=== PATIENT | male | born 1945 | race Caucasian/White ===

== ENCOUNTER 2018-03-31 07:35 | Day surgery (SDC) | payer MEDICARE, OTHER ==
[2018-03-31 08:41] LABS: HEMATOCRIT 43.6 % (37.9-51.0); MEAN CORPUSCULAR HEMOGLOBIN 32.8 pg (27.0-33.4); MEAN CORPUSCULAR HGB CONC 34.4 g/dL (32.0-36.0); MEAN CORPUSCULAR VOLUME 95 fl (80-97); PLATELET COUNT 107 10^3/uL (150-450); RED BLOOD COUNT 4.58 10^6/uL (4.35-5.55); RED CELL DISTRIBUTION WIDTH 13.6 % (11.5-14.0); WHITE BLOOD COUNT 5.8 10^3/uL (4.0-10.5)
[2018-03-31 08:43] LABS: PROTHROMBIN TIME 16.8 SEC (11.4-15.4)
[2018-03-31 08:44] LABS: PARTIAL THROMBOPLASTIN TIME 33.3 SEC (23.5-35.8)
[2018-03-31 09:01] LABS: BLOOD UREA NITROGEN 7 mg/dL (7-20)
--- NOTE | 2018-03-31 11:38 | RADIOLOGY REPORT (SQ) ---
EXAM DESCRIPTION: U/S ABD PARACENTESIS COMPLETED DATE/TIME: 03/31/2018 11:27 am REASON FOR STUDY: ASCITES COMPARISON None. LIMITATIONS: None. PROCEDURE: After obtaining informed consent, the patient was brought to the ultrasound suite. The p rocedure was performed with the patient on a gurney. Ultrasound was used to identify a prominent poc ket of ascites in the left lower quadrant. An appropriate access site was selected. The patient was prepped and draped in usual sterile fashion. The access site was anesthetized with 6 mL 1% lidocai ne. A Javo-S-Kjwgahqs needle was advanced into the fluid. After aspiration of fluid the needle, the catheter was advanced off the needle into the fluid. A total of 6,000 mL of clear yellow fluid was removed. The patient tolerated the procedure well left the department in satisfactory condition. Patient received IV albumin after the procedure. Fluid was sent for testing as per the ordering phys ician IMPRESSION: Ultrasound-guided paracentesis with removal of 6 L of fluid. Fluid sent for testing. N o immediate complications COMMENT: Patient medication list reviewed: Yes- Quality ID# [id number]:Eligible professional attests to doc umenting in the medical record they obtained, updated, or reviewed the patient's current medications. TECHNICAL DOCUMENTATION: JOB ID: [id number] [employer]- All Rights Reserved Reading location - IP/workstation name: [email or web address]
[2018-03-31 12:02] LABS: FLUID SOURCE ASCITES; FLUID TYPE PERITONEAL
[2018-03-31 12:03] LABS: FLUID APPEARANCE SLIGHTLY HAZY; FLUID COLOR YELLOW; FLUID VISCOSITY LIQUID
[2018-03-31] MEDS: ALBUMIN HUMAN 12.5 GM/50 ML RTUINJ IV SCH ×6 (13:00→15:10)
[2018-03-31 16:06] VITALS: BP 123/67
== END 2018-03-31 15:45 | disposition home or self-care (01) ==
LOC: RAD 07:35 → EDSTATUS 09:30 → RAD 15:45
PROVIDERS: ATTEND Internal Medicine Gastroenterology
DX: K70.31 Alcoholic cirrhosis of liver with ascites (principal); I85.00 Esophageal varices without bleeding; J44.9 Chronic obstructive pulmonary disease, unspecified; I10 Essential (primary) hypertension; F17.210 Nicotine dependence, cigarettes, uncomplicated; Z79.51 Long term (current) use of inhaled steroids; Z79.899 Other long term (current) drug therapy
CPT/HCPCS: 36415; 87205; 87070; 84520; 82565; 85027; 85610; 85730; 89050; 87075; 88162; 88112 ×2; 88305 ×2; 49083; P9047

== ENCOUNTER 2019-03-30 09:15 | Day surgery (SDC) | payer MEDICARE, OTHER ==
[2019-03-30 11:51] VITALS: BP 115/75
--- NOTE | 2019-03-30 13:08 | Discharge Summary ---
Discharge Summary (SDC) - Discharge Final Diagnosis: Ascites, liver failure Date of Surgery: 03/30/19 Discharge Date: 03/30/19 Condition: Stable Treatment or Instructions: Discharge home. Diet as tolerated. Activity: Nonstrenuous. Follow-up with me in 1 to 2 weeks at [facility]. Referrals: BILLIE DURAN MD [Primary Care Provider] - Discharge Diet: As Tolerated Respiratory Treatments at Home: Deep Breathing/Coughing, Incentive Spirometer Discharge Activity: Balance Activity w/Rest Home Care Assistance: None Needed Report the Following to Your Physician Immediately: Shortness of Breath, Nausea, Vomiting, Increase in Pain, Fever over 101 Degrees, Unusual Bleeding, Redness
--- NOTE | 2019-03-30 13:11 | Operative Report ---
Nonrecallable Operative Report DATE OF SURGERY: 03/30/19 PREOPERATIVE DIAGNOSIS: Ascites, abdominal pain, liver failure POSTOPERATIVE DIAGNOSIS: Same as above OPERATION: Ultrasound-guided paracentesis. SURGEON: GRACE GARCIA ANESTHESIA: Local TISSUE REMOVED OR ALTERED: 6 L of ascites. Sample sent for cytology. COMPLICATIONS: None apparent ESTIMATED BLOOD LOSS: Minimal PROCEDURE: Drains/implants: None. Procedure in detail: After informed consent was obtained, the patient was brought into the endoscopy suite and sat in the upright position. The area of the right lower quadrant was prepped and draped in a normal sterile fashion. 1% lidocaine was used to infiltrate the skin of the right lower quadrant. On 11 blade scalpel was used to make a small skin puncture. The paracentesis catheter was then percutaneously inserted into the abdominal cavity. This was done under direct ultrasonic guidance. Once the catheter was inserted into the abdomen, the needle was withdrawn and the paracentesis was performed. Approximately 6 L of clear yellow ascites was removed from the abdominal cavity. Once no more ascites could be removed, the catheter was withdrawn under suction. A dressing was placed, and the procedure was concluded. All sponge, instrument, and needle counts were correct. Condition: Stable.
== END 2019-03-30 11:30 | disposition home or self-care (01) ==
LOC: END 09:15
PROVIDERS: ATTEND Surgery
DX: R18.8 Other ascites (principal); K72.90 Hepatic failure, unspecified without coma; R16.0 Hepatomegaly, not elsewhere classified
CPT/HCPCS: 49082

== ENCOUNTER 2019-05-13 07:36 | Day surgery (SDC) | payer MEDICARE, OTHER ==
[2019-05-13 09:28] VITALS: BP 100/54
--- NOTE | 2019-05-13 10:43 | Discharge Summary ---
Discharge Summary (SDC) - Discharge Final Diagnosis: Liver failure. Ascites. Hepatocellular carcinoma. Date of Surgery: 05/13/19 Discharge Date: 05/13/19 Condition: Fair Forms: EU Anesthesia D/C Instructions, Discharge POC-Surgical Service Referrals: GRACE GARCIA MD [ACTIVE STAFF] - Discharge Diet: As Tolerated Respiratory Treatments at Home: Deep Breathing/Coughing, Incentive Spirometer Discharge Activity: Balance Activity w/Rest Home Care Assistance: None Needed Report the Following to Your Physician Immediately: Shortness of Breath, Nausea, Vomiting, Increase in Pain, Fever over 101 Degrees, Unusual Bleeding, Redness, Warmth, IV Site Infection Signs
--- NOTE | 2019-05-13 10:45 | Operative Report ---
Nonrecallable Operative Report DATE OF SURGERY: 05/13/19 PREOPERATIVE DIAGNOSIS: Ascites, liver failure, hepatocellular carcinoma. POSTOPERATIVE DIAGNOSIS: Same as above OPERATION: Ultrasound-guided paracentesis SURGEON: GRACE GARCIA ANESTHESIA: Local TISSUE REMOVED OR ALTERED: 6 L of ascites. COMPLICATIONS: None apparent ESTIMATED BLOOD LOSS: Minimal PROCEDURE: Procedure in detail: After informed consent was obtained, the patient was brought into the endoscopy suite and sat in the upright position. The ultra sound was used to identify an appropriate area on the abdomen for paracentesis. The left lower quadrant was chosen. The left lower quadrant was then prepped and draped in a normal sterile fashion. The paracentesis catheter was inserted under direct ultrasonic guidance into an area filled with fluid. The catheter was then attached to suction. 6 L of ascites was removed. The patient tolerated the procedure well. His blood pressure and heart rate remained stable throughout. Once no more fluid could be removed from the catheter, the patient was laid flat, and the catheter was removed under suction. A dressing was placed, and the procedure was concluded. All sponge, instrument, and needle counts were correct. Condition: Fair.
== END 2019-05-13 09:40 | disposition home or self-care (01) ==
LOC: END 07:36
PROVIDERS: ATTEND Surgery
DX: R18.8 Other ascites (principal); K72.90 Hepatic failure, unspecified without coma; C22.0 Liver cell carcinoma; J44.9 Chronic obstructive pulmonary disease, unspecified; F17.210 Nicotine dependence, cigarettes, uncomplicated; Z79.82 Long term (current) use of aspirin; Z01.818 Encounter for other preprocedural examination
CPT/HCPCS: 49082

== ENCOUNTER 2019-06-19 13:28 | Inpatient (IN) | payer MEDICARE, OTHER ==
[2019-06-19 13:54] LABS: VENOUS BLOOD BASE EXCESS -4.8 mmol/L; VENOUS BLOOD HCO3 19.9 mmol/L (20-32); VENOUS BLOOD PCO2 35.3 mmHg (35-63); VENOUS BLOOD PH 7.37 (7.30-7.42)
[2019-06-19 13:56] LABS: ABSOLUTE LYMPHOCYTES (AUTO) 0.5 10^3/uL (0.5-4.7); ABSOLUTE MONOCYTES (AUTO) 0.6 10^3/uL (0.1-1.4); ABSOLUTE NEUT (AUTO) 7.8 10^3/uL (1.7-8.2); BASOPHILS % (AUTO) 0.4 % (0-2); HEMATOCRIT 26.8 % (37.9-51.0); HEMOGLOBIN 8.9 g/dL (13.5-17.0); LYMPHOCYTES % (AUTO) 5.2 % (13-45); MEAN CORPUSCULAR HEMOGLOBIN 31.5 pg (27.0-33.4); MEAN CORPUSCULAR VOLUME 96 fl (80-97); MONOCYTES % (AUTO) 6.3 % (3-13); RED BLOOD COUNT 2.81 10^6/uL (4.35-5.55); RED CELL DISTRIBUTION WIDTH 16.2 % (11.5-14.0); SEGMENTED NEUTROPHILS % (AUTO) 88.1 % (42-78); TOTAL CELLS COUNTED % (AUTO) 100 %; WHITE BLOOD COUNT 8.8 10^3/uL (4.0-10.5)
[2019-06-19 14:11] LABS: ALBUMIN 2.3 g/dL (3.5-5.0); ALKALINE PHOSPHATASE 67 U/L (38-126); ANION GAP 9 (5-19); ASPARTATE AMINO TRANSFERASE 59 U/L (17-59); BILIRUBIN,DIRECT 0.8 mg/dL (0.0-0.4); BILIRUBIN,TOTAL 1.7 mg/dL (0.2-1.3); BLOOD UREA NITROGEN 86 mg/dL (7-20); CARBON DIOXIDE 20 mmol/L (22-30); CHLORIDE 106 mmol/L (98-107); GLUCOSE 93 mg/dL (75-110); POTASSIUM 4.6 mmol/L (3.6-5.0); TOTAL PROTEIN 5.2 g/dL (6.3-8.2)
[2019-06-19 14:14] LABS: PLATELET COUNT 88 10^3/uL (150-450)
--- NOTE | 2019-06-19 14:22 | RADIOLOGY REPORT (SQ) ---
EXAM DESCRIPTION: CHEST SINGLE VIEW COMPLETED DATE/TIME: 06/19/2019 2:02 pm REASON FOR STUDY: sepsis alert COMPARISON: 06/08/2018 EXAM PARAMETERS: NUMBER OF VIEWS: One view. TECHNIQUE: Single frontal radiographic view of the chest acquired. RADIATION DOSE: NA LIMITATIONS: None. FINDINGS: LUNGS AND PLEURA: No opacities, masses or pneumothorax. No pleural effusion. MEDIASTINUM AND HILAR STRUCTURES: No masses. Contour normal. HEART AND VASCULAR STRUCTURES: Heart normal in size. Normal vasculature. BONES: No acute findings. HARDWARE: None in the chest. OTHER: No other significant finding. IMPRESSION: NO ACUTE RADIOGRAPHIC FINDING IN THE CHEST. TECHNICAL DOCUMENTATION: JOB ID: [id number] [employer]- All Rights Reserved Reading location - IP/workstation name: [email or web address]
[2019-06-19 14:29] LABS: INTERNATIONAL RATION (INR) 1.75; PROTHROMBIN TIME 20.7 SEC (11.4-15.4)
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
[2019-06-19] MEDS ORDERED: CEFTRIAXONE 1 GM/D5W RTU 1 GM/50 ML RTUPB IV ONE ×3 (14:40→15:28)
[2019-06-19 15:21] LABS: APPEARANCE,URINE SLIGHTLY-CLOUDY; BILIRUBIN,URINE NEGATIVE (NEGATIVE); COLOR,URINE AMBER; GLUCOSE, URINE NEGATIVE (NEGATIVE); KETONES,URINE NEGATIVE (NEGATIVE); PROTEIN,URINE 30 mg/dL (NEGATIVE); UROBILINOGEN,URINE NEGATIVE mg/dL (<2.0)
[2019-06-19] MEDS ORDERED: CEFTRIAXONE 2 GM/D5W RTU 2 GM/50 ML RTUPB IV ONE (15:26)
--- NOTE | 2019-06-19 16:11 | RADIOLOGY REPORT (SQ) ---
EXAM DESCRIPTION: CT HEAD WITHOUT COMPLETED DATE/TIME: 06/19/2019 3:51 pm REASON FOR STUDY: altered mental status COMPARISON: None. TECHNIQUE: Axial images acquired through the brain without intravenous contrast. Images reviewed wi th bone, brain and subdural windows. Images stored on PACS. All CT scanners at this facility use dose modulation, iterative reconstruction, and/or weight based d osing when appropriate to reduce radiation dose to as low as reasonably achievable (ALARA). [facility]: Dose Right [facility]: CareDose [facility]: Dose Right [facility]: Teradose 4D [facility]: Red Aril RADIATION DOSE: CT Rad equipment meets quality standard of care and radiation dose reduction techniq ues were employed. CTDIvol: 53.2 mGy. DLP: 1097 mGy-cm. mGy. LIMITATIONS: None. FINDINGS: VENTRICLES: Normal size and contour. CEREBRUM: No masses. No hemorrhage. No midline shift. No evidence for acute infarction. Normal gra y/white matter differentiation. No areas of low density in the white matter. CEREBELLUM: No masses. No hemorrhage. No alteration of density. No evidence for acute infarction. EXTRAAXIAL SPACES: No fluid collections. No masses. ORBITS AND GLOBE: No intra- or extraconal masses. Normal contour of globe without masses. CALVARIUM: No fracture. PARANASAL SINUSES: Minimal mucosal thickening within the sphenoid sinuses and right ethmoid sinus. N roselia septal deviation to the right. SOFT TISSUES: No mass or hematoma. OTHER: No other significant finding. IMPRESSION: NORMAL BRAIN CT WITHOUT CONTRAST. EVIDENCE OF ACUTE STROKE: NO. COMMENT: Quality ID # [id number]: Final reports with documentation of one or more dose reduction techniques (e.g., Automated exposure control, adjustment of the mA and/or kV according to patient size, use of iterative reconstruction technique) TECHNICAL DOCUMENTATION: JOB ID: [id number] SC-[id number] 2010 [employer]- All Rights Reserved Reading location - IP/workstation name: [email or web address]
[2019-06-19] MEDS ORDERED: NORMAL SALINE 1000 ML 1,000 ML IV ONE ×2 (16:19→17:16)
[2019-06-19] MEDS ORDERED: NORMAL SALINE 500 ML IV ONE (16:19)
--- NOTE | 2019-06-19 16:28 | RADIOLOGY REPORT (SQ) ---
EXAM DESCRIPTION: CT ABD/PELVIS NO ORAL OR IV COMPLETED DATE/TIME: 06/19/2019 3:51 pm REASON FOR STUDY: abdominal pain/ ascites/ YADIRA COMPARISON: None. TECHNIQUE: CT scan of the abdomen and pelvis performed without intravenous or oral contrast. Images reviewed with lung, soft tissue, and bone windows. Reconstructed coronal and sagittal MPR images revi ewed. All images stored on PACS. All CT scanners at this facility use dose modulation, iterative reconstruction, and/or weight based d osing when appropriate to reduce radiation dose to as low as reasonably achievable (ALARA). [facility]: Dose Right [facility]: CareDose [facility]: Dose Right [facility]: Teradose 4D [facility]: Smart MoSync RADIATION DOSE: CT Rad equipment meets quality standard of care and radiation dose reduction techniq ues were employed. CTDIvol: 14.4 mGy. DLP: 846 mGy-cm.mGy. LIMITATIONS: None. FINDINGS: LOWER CHEST: Chronic subpleural interstitial changes. Calcified granuloma right lower lob e. NON-CONTRASTED LIVER, SPLEEN, ADRENALS: LIVER: Small and nodular consistent with cirrhosis. SPLEEN: No abnormality. ADRENALS: No abnormality. PANCREAS: No abnormality. GALLBLADDER: Hyperdense. RIGHT KIDNEY AND URETER: No abnormality. LEFT KIDNEY AND URETER: Nonobstructive calculus mid left kidney. AORTA AND RETROPERITONEUM: Diffuse atherosclerotic change of the abdominal aorta and iliac vessels. Atherosclerotic change at origin of celiac artery and superior mesenteric artery. Atherosclerotic ch leanne at origin of renal arteries. 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 The aneurysm measures 5.4(T)x5(AP) x. 5.7(H) cm. No retroperitoneal masses or adenopathy. BOWEL AND PERITONEAL CAVITY: Thickening of the stomach wall noted. Inflammatory change not excluded. Hiatal hernia not excluded. Diverticulosis of the rectosigmoid colon. APPENDIX: Normal. PELVIS, BLADDER, AND ABDOMINAL WALL:Urinary bladder: Singletary catheter in bladder base. Bladder decomp ressed. BONES: Thoracic and lumbar spondylosis. OTHER: No other significant finding. IMPRESSION: 1. Findings consistent with cirrhosis of the liver with evidence of small nodular liver . Massive ascites. 2. Hyperdense gallbladder. The possibility of cholelithiasis cannot be exclude d. Hyperdensity could be secondary to excretion of contrast if prior contrast administration perform ed. 3. 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 The aneurysm measures 5.4 x 5 x 5.7 cm. 4. Thickening of the gastric mucosa which could be seen with inflammatory change. Clinical correlation needed. Hiatal hernia. 5. Chr onic interstitial changes in right lower lobe. Old granulomatous disease. COMMENT: Quality ID # [id number]: Final reports with documentation of one or more dose reduction techniques (e.g., Automated exposure control, adjustment of the mA and/or kV according to patient size, use of iterative reconstruction technique) TECHNICAL DOCUMENTATION: JOB ID: [id number] SC-[id number] 2010 [employer]- All Rights Reserved Reading location - IP/workstation name: [email or web address]
[2019-06-19] MEDS ORDERED: ONDANSETRON 4 MG TAB.RAPDIS PO PRN (17:25)
[2019-06-19] MEDS ORDERED: ALBUTEROL SULFATE 0.083% NEB 2.5 MG/3 ML AMPUL NEB PRN (17:25)
[2019-06-19] MEDS ORDERED: NORMAL SALINE 250 ML IV PRN (17:51)
[2019-06-19] MEDS ORDERED: SUCRALFATE 1 GM TABLET PO SCH (18:00)
--- NOTE | 2019-06-19 18:24 | CRITICAL CARE ADMISSION REPORT ---
HPI Date:: 06/19/19 Time:: 17:00 Reason for ICU Reason:: ARF, cirrhosis, GI bleeding, encephalopathy. HPI: This patient is a 74 yo man who (according to the who spoke to the ED MD). He was recently at [facility] for some hepatology issue. He is a cirrhotic and underwent a paracentesis. He was sent home and the found herself in the hospital for a few days. During that time the patient decompensated more with encephalopathy (NH3 9) not eating or drinking nor taking care of himself. He is brought to the ED for confusion and dehydration. While in the ED he had maroon BMs and Dropped his pressure to the 70s. Now up to mid 80s where he has been. He is also in ARF with a Cr 3 ut mild acidosis, no hyperkalemia certainly not overloaded. History obtained from:: ED MD who also spoke to . Patient confused - Diagnosis/Plan (1) Cirrhosis of liver Qualifiers: Hepatic cirrhosis type: alcoholic cirrhosis Ascites presence: with ascites Qualified Code(s): K70.31 - Alcoholic cirrhosis of liver with ascites Is this a current diagnosis for this admission?: Yes Plan: His LFTs are normal but on CT his liver is small and shrunken. No sign of hepatoma but it is without contrast. He will need IVF, albumin and blood which makes it necessary to monitor in the ICU given his liver status, ascites and need for blood products. Be careful of worsening ascites. (2) GI bleeding Qualifiers: GI bleed type/associated pathology: unspecified gastrointestinal hemorrhage type Qualified Code(s): K92.2 - Gastrointestinal hemorrhage, unspecified Is this a current diagnosis for this admission?: Yes Plan: He is bleeding maroon BM but given his hx of cirrhosis and ETOH an upper source is most likely. We will transfuse 1 unit to start and begin a protonix drip with carafate. (3) Acute kidney injury Is this a current diagnosis for this admission?: Yes Plan: CR 3.0 but with no acidosis or hypekalemia continue IVF. Recheck labs in AM. Suspect a worsening by AM (4) Dehydration Is this a current diagnosis for this admission?: Yes Plan: Continue IVF. Likely the reason for lactic acid of nearly 3. Also he is probaly deficient in lactate dehydrogenase as well. (5) Encephalopathy acute Is this a current diagnosis for this admission?: Yes Plan: Multifactorial. Ammonia only 9 so this is likely due to dehydration and medical illness. Right now does not seem hepatic. Past Medical History Cardiac Medical History: Reports: Hypertension Denies: Coronary Artery Disease, Myocardial Infarction Pulmonary Medical History: Reports: Chronic Obstructive Pulmonary Disease (COPD) Denies: Asthma, Bronchitis, Pneumonia Neurological Medical History: Denies: Seizures Musculoskeltal Medical History: Denies: Arthritis Hematology: Denies: Anemia Social/Family History - Social History Smoking Status: Unknown if Ever Smoked Frequency of Alcohol Use: Heavy - Family History Family History: Other - Not known - Medication/Allergies Home Medications: Albuterol Sulfate [Proair HFA] 1 - 2 puff IH Q4 PRN 03/31/18 Amlodipine Besylate 10 mg PO DAILY 03/31/18 Aspirin [Aspirin 325 mg Tablet] 325 mg PO DAILY 03/31/18 Furosemide 20 mg PO DAILY 03/31/18 Hydralazine HCl 100 mg PO DAILY 03/31/18 Lactulose 10 gm PO DAILY 03/31/18 Metoprolol Succinate 100 mg PO DAILY 03/31/18 Montelukast Sodium [Singulair] 10 mg PO DAILY 03/31/18 Potassium Chloride 2 tab PO DAILY 03/31/18 Spironolactone 50 mg PO DAILY 03/31/18 Allergies/Adverse Reactions: No Known Allergies Allergy (Verified 03/31/18 08:06) Review of Systems ROS unobtainable: Due to mental status Constitutional: PRESENT: fatigue, weakness Eyes: ABSENT: visual disturbances Ears: ABSENT: hearing changes Cardiovascular: ABSENT: chest pain, dyspnea on exertion, edema, orthropnea, palpitations Respiratory: ABSENT: cough, hemoptysis Gastrointestinal: PRESENT: abdominal pain Musculoskeletal: ABSENT: joint swelling Neurological: PRESENT: confusion, weakness Psychiatric: ABSENT: anxiety, depression, homidical ideation, suicidal ideation Hematologic/Lymphatic: ABSENT: easy bleeding, easy bruising Physical Exam Vital Signs: Temp Pulse Resp BP Pulse Ox 96.4 F L 13 85/62 L 100 06/19/19 17:45 06/19/19 17:45 06/19/19 17:45 06/19/19 17:45 Intake & Output 06/18/19 06/19/19 06/20/19 06:59 06:59 06:59 Intake Total 1600 Output Total 50 Balance 1550 Weight 58.967 kg Weight/Height Weight 58.967 kg General appearance: PRESENT: no acute distress, disheveled, thin Exam: Emaciated Head exam: PRESENT: atraumatic, normocephalic Eye exam: PRESENT: conjunctiva pink, EOMI, PERRLA. ABSENT: scleral icterus Ear exam: PRESENT: normal external ear exam Mouth exam: PRESENT: dry mucosa, tongue midline Neck exam: ABSENT: carotid bruit, JVD, lymphadenopathy, thyromegaly Respiratory exam: PRESENT: clear to auscultation zak, decreased breath sounds, unlabored Cardiovascular exam: PRESENT: tachycardia Pulses: PRESENT: normal dorsalis pedis pul Vascular exam: PRESENT: normal capillary refill GI/Abdominal exam: PRESENT: ascites, diminished bowel sounds, distended, soft Rectal exam: PRESENT: deferred, bloody stool Gentrourinary exam: PRESENT: indwelling catheter Extremities exam: PRESENT: other - Multiple phil of petechia and bruising on all 4 extremities. Neurological exam: PRESENT: alert, altered, awake, oriented to person Skin exam: PRESENT: petechiae Laboratory/Radiographs Laboratory Results: 06/19/19 13:37 06/19/19 13:37 06/19/19 06/19/19 06/19/19 13:37 13:37 13:37 WBC 8.8 RBC 2.81 L Hgb 8.9 L Hct 26.8 L MCV 96 MCH 31.5 MCHC 33.0 RDW 16.2 H Plt Count 88 L Seg Neutrophils % 88.1 H VBG pH VBG pCO2 VBG HCO3 VBG Base Excess Sodium 135.2 L Potassium 4.6 Chloride 106 Carbon Dioxide 20 L Anion Gap 9 BUN 86 H Creatinine 3.07 H Est GFR ( Amer) 24 L Glucose 93 Lactic Acid 2.9 H Calcium 9.0 Total Bilirubin 1.7 H AST 59 Alkaline Phosphatase 67 Ammonia Total Protein 5.2 L Albumin 2.3 L Urine Color Urine Appearance Urine pH Ur Specific [place] Urine Protein Urine Glucose (UA) Urine Ketones Urine Blood Urine RBC (Auto) 06/19/19 06/19/19 06/19/19 13:37 13:37 14:56 WBC RBC Hgb Hct MCV MCH MCHC RDW Plt Count Seg Neutrophils % VBG pH 7.37 VBG pCO2 35.3 VBG HCO3 19.9 L VBG Base Excess -4.8 Sodium Potassium Chloride Carbon Dioxide Anion Gap BUN Creatinine Est GFR ( Amer) Glucose Lactic Acid Calcium Total Bilirubin AST Alkaline Phosphatase Ammonia 9.4 Total Protein Albumin Urine Color DEJUAN Urine Appearance SLIGHTLY-CLOUDY Urine pH 5.0 Ur Specific [place] 1.020 Urine Protein 30 H Urine Glucose (UA) NEGATIVE Urine Ketones NEGATIVE Urine Blood SMALL H Urine RBC (Auto) 15 06/19/19 06/19/19 17:05 17:05 WBC RBC Hgb Hct MCV MCH MCHC RDW Plt Count Seg Neutrophils % VBG pH VBG pCO2 VBG HCO3 VBG Base Excess Sodium Potassium Chloride Carbon Dioxide Anion Gap BUN Creatinine Est GFR ( Amer) Glucose Lactic Acid Cancelled 2.0 Calcium Total Bilirubin AST Alkaline Phosphatase Ammonia Total Protein Albumin Urine Color Urine Appearance Urine pH Ur Specific [place] Urine Protein Urine Glucose (UA) Urine Ketones Urine Blood Urine RBC (Auto) 06/19/19 06/19/19 13:37 13:37 Troponin I 0.086 NT-Pro-B Natriuret Pep 6470 H Impressions: Chest X-Ray 06/19/19 13:36 IMPRESSION: NO ACUTE RADIOGRAPHIC FINDING IN THE CHEST. Head CT 06/19/19 15:12 IMPRESSION: NORMAL BRAIN CT WITHOUT CONTRAST. EVIDENCE OF ACUTE STROKE: NO. Abdomen/Pelvis CT 06/19/19 15:25 IMPRESSION: 1. Findings consistent with cirrhosis of the liver with evidence of small nodular liver. Massive ascites. 2. Hyperdense gallbladder. The possibility of cholelithiasis cannot be excluded. Hyperdensity could be secondary to excretion of contrast if prior contrast administration performed. 3. 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 The aneurysm measures 5.4 x 5 x 5.7 cm. 4. Thickening of the gastric mucosa which could be seen with inflammatory c hange. Clinical correlation needed. Hiatal hernia. 5. Chronic interstitial changes in right lower lobe. Old granulomatous disease. All labs, radiographs, diagnostic studies and EKGs were personally reviewed: Yes In addition, reports of radiographic and diagnostic studies were read: Yes Critical Time Critical Time (minutes): 45 -: The care of a critically ill patient is dynamic. This note represents a static moment in the admission process. orders and treatments may be given simulataneously and urgentl, and time is not kiosk sales representative of the treatment process. This patient requires Critical Care secondary to life threating organ or limb dysfunction. Without the need for Critical Care services, the patient is at risk for increasid mortality and morbidity.
[2019-06-19] MEDS: ALBUMIN HUMAN 12.5 GM/50 ML RTUINJ IV SCH ×2 (18:31→21:40)
[2019-06-19] MEDS ORDERED: THIAMINE HCL 100 MG in NORMAL SALINE 50 ML IV ONE (19:15)
[2019-06-19] MEDS ORDERED: PANTOPRAZOLE SODIUM 40 MG VIAL IV ONE (19:31)
[2019-06-19] MEDS ORDERED: PHARMACY COMMUNICATION ORDER MC NR (20:00)
[2019-06-19] MEDS ORDERED: DIPHENHYDRAMINE HCL 50 MG/ML VIAL ONE (20:19)
[2019-06-19] MEDS ORDERED: ONDANSETRON HCL INJ/PF 4 MG/2 ML SDV ONE (20:19)
[2019-06-19] MEDS ORDERED: NALOXONE HCL INJ/PF 0.4 MG/1 ML SDV ONE (20:20)
[2019-06-19] MEDS ORDERED: FENTANYL CITRATE INJ/PF 100 MCG/2 ML AMPUL ONE (20:20)
[2019-06-19] MEDS ORDERED: GLUCAGON,HUMAN RECOMB 1 MG INJ ONE (20:20)
[2019-06-19] MEDS ORDERED: EPINEPHRINE INJ 1 MG/10 ML DISP.SYRIN ONE (20:20)
[2019-06-19] MEDS ORDERED: FLUMAZENIL INJ 0.5 MG/5 ML VIAL ONE (20:20)
--- NOTE | 2019-06-19 20:37 | RADIOLOGY REPORT (SQ) ---
EXAM DESCRIPTION: XR CHEST 1 VIEW COMPLETED DATE/TME: 06/19/2019 00:00 CLINICAL HISTORY: 74 years, Male, confirm line placement COMPARISON: Prior study from earlier the same day NUMBER OF VIEWS: One TECHNIQUE: Single frontal view of the chest was obtained portably LIMITATIONS: None. FINDINGS: Enteric drainage tube tip projects below the field of view, at least within the stomach. Left IJ approach central venous catheter tip is located at the confluence of the left brachiocephalic vein with the SVC. Cardiac and mediastinal contours are stable. Lungs are clear. No pleural effusion or pneumothorax. IMPRESSION: Interval placement of left IJ approach central venous catheter with its tip located at the confluence of the left brachiocephalic vein with the SVC. Enteric drainage tube tip is below the field of view. It is at least within the stomach. copyright 2010 [employer]- All Rights Reserved
[2019-06-19] MEDS ORDERED: OCTREOTIDE ACETATE INJ/PF 100 MCG/1 ML SDV ONE (20:43)
[2019-06-19] MEDS ORDERED: THIAMINE HCL INJ 200 MG/2 ML VIAL ONE (20:44)
[2019-06-19] MEDS: MIDAZOLAM 2 MG/2 ML INJ ONE (20:58)
[2019-06-19] MEDS ORDERED: PEG 3350/NA SULF,BICARB,CL/KCL 4000 ML PO ONE (21:07)
[2019-06-19] MEDS ORDERED: PEG 3350/NA SULF,BICARB,CL/KCL 4000 ML ONE (21:12)
--- NOTE | 2019-06-19 21:29 | PDOC CONSULTATION ---
Consultation Consult Date: 06/19/19 Attending physician:: PROSPER LÓPEZ Provider Consulted: JEFF MENDEZ Consult reason:: gi bleeding History of Present Illness Admission Date/PCP: 06/19/19 17:30 BILLIE DURAN MD History of Present Illness: ADDISON BERMUDEZ JR is a 74 year old male This patient is a 74 yo man who (according to the who spoke to the ED MD). He was recently at [facility] for some hepatology issue. He is a cirrhotic and underwent a paracentesis. He was sent home and the found herself in the hospital for a few days. During that time the patient decompensated more with encephalopathy (NH3 9) not eating or drinking nor taking care of himself. He is brought to the ED for confusion and dehydration. While in the ED he had maroon BMs and Dropped his pressure to the 70s. Now up to mid 80s where he has been. He is also in ARF with a Cr 3 ut mild acidosis, no hyperkalemia certainly not overloaded. History obtained from:: ED MD who also spoke to . 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 history of ascites severe EtOH abuse Musculoskeltal Medical History: Denies: Arthritis Hematology: Reports: Bleeding Tendencies Denies: Anemia Past Surgical History Past Surgical History: Reports: Vascular Surgery, Other - With history of a variceal banding Social History Smoking Status: Unknown if Ever Smoked Cigarettes Packs Per Day: 1 Frequency of Alcohol Use: Heavy Hx Recreational Drug Use: No Drugs: None - Advance Directive Resuscitation Status: Full Code Family History Family History: Reviewed & Not Pertinent, Other - Not known Parental Family History Reviewed: No Children Family History Reviewed: NA Sibling(s) Family History Reviewed.: NA Medication/Allergy Home Medications: Albuterol Sulfate [Proair HFA] 1 - 2 puff IH Q4 PRN 03/31/18 Amlodipine Besylate 10 mg PO DAILY 03/31/18 Aspirin [Aspirin 325 mg Tablet] 325 mg PO DAILY 03/31/18 Furosemide 20 mg PO DAILY 03/31/18 Hydralazine HCl 100 mg PO DAILY 03/31/18 Lactulose 10 gm PO DAILY 03/31/18 Metoprolol Succinate 100 mg PO DAILY 03/31/18 Montelukast Sodium [Singulair] 10 mg PO DAILY 03/31/18 Potassium Chloride 2 tab PO DAILY 03/31/18 Spironolactone 50 mg PO DAILY 03/31/18 Allergies/Adverse Reactions: No Known Allergies Allergy (Verified 03/31/18 08:06) Review of Systems ROS unobtainable: Due to mental status Constitutional: ABSENT: chills, fever(s), headache(s), weight gain, weight loss Eyes: ABSENT: visual disturbances Ears: ABSENT: hearing changes Cardiovascular: ABSENT: chest pain, dyspnea on exertion, edema, orthropnea, palpitations Respiratory: ABSENT: cough, hemoptysis Gastrointestinal: PRESENT: melena. ABSENT: abdominal pain, constipation, diarrhea, hematemesis, hematochezia, nausea, vomiting Genitourinary: ABSENT: dysuria, hematuria Musculoskeletal: ABSENT: joint swelling Integumentary: ABSENT: rash, wounds Neurological: ABSENT: abnormal gait, abnormal speech, confusion, dizziness, focal weakness, syncope Psychiatric: ABSENT: anxiety, depression, homidical ideation, suicidal ideation Endocrine: ABSENT: cold intolerance, heat intolerance, polydipsia, polyuria Hematologic/Lymphatic: ABSENT: easy bleeding, easy bruising Physical Exam Vital Signs: Temp Pulse Resp BP Pulse Ox 96.6 F L 97 20 91/54 L 99 06/19/19 20:15 06/19/19 20:30 06/19/19 20:30 06/19/19 20:30 06/19/19 20:30 Intake & Output 06/18/19 06/19/19 06/20/19 06:59 06:59 06:59 Intake Total 1859 Output Total 250 Balance 1609 Weight 61.1 kg General appearance: PRESENT: no acute distress, disheveled, severe distress, thin, well-developed, well-nourished Head exam: PRESENT: atraumatic, normocephalic Eye exam: PRESENT: conjunctiva pink, EOMI, PERRLA. ABSENT: scleral icterus Ear exam: PRESENT: normal external ear exam Mouth exam: PRESENT: dry mucosa, moist, tongue midline Teeth exam: PRESENT: edentulous Neck exam: PRESENT: full ROM. ABSENT: carotid bruit, JVD, lymphadenopathy, thyromegaly Respiratory exam: PRESENT: clear to auscultation zak, decreased breath sounds. ABSENT: rales, rhonchi, wheezes Cardiovascular exam: PRESENT: RRR. ABSENT: diastolic murmur, rubs, systolic murmur Pulses: PRESENT: normal carotid pulses, normal dorsalis pedis pul Vascular exam: PRESENT: normal capillary refill GI/Abdominal exam: PRESENT: ascites, diminished bowel sounds, normal bowel sounds, soft, other - Hematochezia amounts of dark tarry stool. ABSENT: distended, guarding, mass, organolmegaly, rebound, tenderness Rectal exam: PRESENT: deferred Gentrourinary exam: PRESENT: indwelling catheter Extremities exam: PRESENT: full ROM. ABSENT: calf tenderness, clubbing, pedal edema Neurological exam: PRESENT: alert, altered - Encephalopathic, awake, oriented to person, oriented to place, oriented to time, oriented to situation, CN II-XII grossly intact. ABSENT: motor sensory deficit Psychiatric exam: PRESENT: appropriate affect, normal mood. ABSENT: homicidal ideation, suicidal ideation Skin exam: PRESENT: dry, intact, warm, other - Multiple ecchymoses on the abdominal wall all 4 extremities on his face. ABSENT: cyanosis, rash Results Laboratory Results: 06/19/19 13:37 06/19/19 13:37 06/19/19 06/19/19 06/19/19 13:37 13:37 13:37 WBC 8.8 RBC 2.81 L Hgb 8.9 L Hct 26.8 L MCV 96 MCH 31.5 MCHC 33.0 RDW 16.2 H Plt Count 88 L Seg Neutrophils % 88.1 H VBG pH VBG pCO2 VBG HCO3 VBG Base Excess Sodium 135.2 L Potassium 4.6 Chloride 106 Carbon Dioxide 20 L Anion Gap 9 BUN 86 H Creatinine 3.07 H Est GFR ( Amer) 24 L Glucose 93 Lactic Acid 2.9 H Calcium 9.0 Magnesium Total Bilirubin 1.7 H AST 59 Alkaline Phosphatase 67 Ammonia Total Protein 5.2 L Albumin 2.3 L Urine Color Urine Appearance Urine pH Ur Specific [place] Urine Protein Urine Glucose (UA) Urine Ketones Urine Blood Urine RBC (Auto) Blood Type Antibody Screen 06/19/19 06/19/19 06/19/19 13:37 13:37 14:56 WBC RBC Hgb Hct MCV MCH MCHC RDW Plt Count Seg Neutrophils % VBG pH 7.37 VBG pCO2 35.3 VBG HCO3 19.9 L VBG Base Excess -4.8 Sodium Potassium Chloride Carbon Dioxide Anion Gap BUN Creatinine Est GFR ( Amer) Glucose Lactic Acid Calcium Magnesium Total Bilirubin AST Alkaline Phosphatase Ammonia 9.4 Total Protein Albumin Urine Color DEJUAN Urine Appearance SLIGHTLY-CLOUDY Urine pH 5.0 Ur Specific [place] 1.020 Urine Protein 30 H Urine Glucose (UA) NEGATIVE Urine Ketones NEGATIVE Urine Blood SMALL H Urine RBC (Auto) 15 Blood Type Antibody Screen 06/19/19 06/19/19 06/19/19 17:05 17:05 18:35 WBC RBC Hgb Hct MCV MCH MCHC RDW Plt Count Seg Neutrophils % VBG pH VBG pCO2 VBG HCO3 VBG Base Excess Sodium Potassium Chloride Carbon Dioxide Anion Gap BUN Creatinine Est GFR ( Amer) Glucose Lactic Acid Cancelled 2.0 Calcium Magnesium Total Bilirubin AST Alkaline Phosphatase Ammonia Total Protein Albumin Urine Color Urine Appearance Urine pH Ur Specific [place] Urine Protein Urine Glucose (UA) Urine Ketones Urine Blood Urine RBC (Auto) Blood Type O POSITIVE Antibody Screen NEGATIVE 06/19/19 18:35 WBC RBC Hgb Hct MCV MCH MCHC RDW Plt Count Seg Neutrophils % VBG pH VBG pCO2 VBG HCO3 VBG Base Excess Sodium Potassium Chloride Carbon Dioxide Anion Gap BUN Creatinine Est GFR ( Amer) Glucose Lactic Acid Calcium Magnesium 1.9 Total Bilirubin AST Alkaline Phosphatase Ammonia Total Protein Albumin Urine Color Urine Appearance Urine pH Ur Specific [place] Urine Protein Urine Glucose (UA) Urine Ketones Urine Blood Urine RBC (Auto) Blood Type Antibody Screen 06/19/19 06/19/19 13:37 13:37 Troponin I 0.086 NT-Pro-B Natriuret Pep 6470 H Impressions: Chest X-Ray 06/19/19 13:36 IMPRESSION: NO ACUTE RADIOGRAPHIC FINDING IN THE CHEST. Head CT 06/19/19 15:12 IMPRESSION: NORMAL BRAIN CT WITHOUT CONTRAST. EVIDENCE OF ACUTE STROKE: NO. Abdomen/Pelvis CT 06/19/19 15:25 IMPRESSION: 1. Findings consistent with cirrhosis of the liver with evidence of small nodular liver. Massive ascites. 2. Hyperdense gallbladder. The possibility of cholelithiasis cannot be excluded. Hyperdensity could be secondary to excretion of contrast if prior contrast administration performed. 3. 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 The aneurysm measures 5.4 x 5 x 5.7 cm. 4. Thickening of the gastric mucosa which could be seen with inflammatory monroe nge. Clinical correlation needed. Hiatal hernia. 5. Chronic interstitial changes in right lower lobe. Old granulomatous disease. Assessment & Plan - Diagnosis (1) Cirrhosis of liver Qualifiers: Hepatic cirrhosis type: alcoholic cirrhosis Ascites presence: with ascites Qualified Code(s): K70.31 - Alcoholic cirrhosis of liver with ascites Is this a current diagnosis for this admission?: Yes (2) Encephalopathy acute Is this a current diagnosis for this admission?: Yes (3) GI bleeding Qualifiers: GI bleed type/associated pathology: unspecified gastrointestinal hemorrhage type Qualified Code(s): K92.2 - Gastrointestinal hemorrhage, unspecified Is this a current diagnosis for this admission?: Yes (4) Hypotension Qualifiers: Hypotension type: unspecified hypotension type Qualified Code(s): I95.9 - Hypotension, unspecified - Plan Summary Plan Summary: Currently the patient remains in the intensive care unit hypotensive with blood pressure in the 90s systolic he has a coagulopathy with elevated PT PTT and a low platelet count currently he is passing black tarry stools out of his rectum and NG tube has bright red blood noted with aspiration I suspect he is bleeding from esophageal varices as he has a previous history of varices and a previous history of banding he was scheduled for a repeat banding last week that he did not have that performed. He is a known alcoholic with severe cirrhosis with severe ascites seen on CT scan and at this point we need to document the bleeding source most likely the varices. Recommendation is upper endoscopy to document varices and if so present consider transfer to a tertiary care center. If if no obvious bleeding source noted on the upper endoscopy prepare the patient for a colonoscopy with a GoLYTELY flush via the NG tube overnight and then colonoscopy when his coagulopathy is corrected and the colon is somewhat cleared of the tarry stool.
--- NOTE | 2019-06-19 21:32 | Operative Report ---
Nonrecallable Operative Report DATE OF SURGERY: 06/19/19 PREOPERATIVE DIAGNOSIS: GI bleeding POSTOPERATIVE DIAGNOSIS: Esophageal and gastric varices evidence of prior bleeding OPERATION: Esophagogastroduodenoscopy ANESTHESIA: Moderate Sedation ESTIMATED BLOOD LOSS: 0 INTRAOPERATIVE FINDINGS: Gastro-and esophageal varices with evidence of prior bleed now no bleeding from the varices. Portal gastropathy with large amount of varices in the fundus of the stomach no evidence of duodenal ulcerations this moderate duodenitis PROCEDURE: Patient was given 1 mg of Versed and placed in the left lateral decubitus position the Olympus gastroscope was easily passed into the posterior pharynx and down the esophagus into the stomach stomach was noted to have prior blood with cough coffee-ground fluid within the stomach itself this was suctioned free and we are able to pass the scope through the pylorus into the duodenum upon entering the duodenum there was moderate to severe duodenitis noted in the proximal duodenum there is no evidence of duodenal ulcer we withdrew the scope through the pylorus back into the stomach there were a lot of significant fundic varices consistent with portal gastropathy there was no obvious bleeding from the fundic varices we straightened the scope and pulled back through the esophagus noted distal esophageal varices with previous evidence of scarring from banding there was 1 or 2 vari noted on the left side of the esophagus to about 3 or 4 cm above the GE junction that had gonzáles red spots on them consistent with a prior bleed but no obvious bleeding was noted during the scope and therefore no banding was performed. The scope was then withdrawn
--- NOTE | 2019-06-19 21:36 | Operative Report ---
Nonrecallable Operative Report DATE OF SURGERY: 06/19/19 PREOPERATIVE DIAGNOSIS: Gastrointestinal bleeding with hypotension POSTOPERATIVE DIAGNOSIS: Gastrointestinal bleeding with hypotension OPERATION: Central line placement SURGEON: JEFF MENDEZ ANESTHESIA: Local TISSUE REMOVED OR ALTERED: None COMPLICATIONS: None ESTIMATED BLOOD LOSS: 0 INTRAOPERATIVE FINDINGS: See dictation PROCEDURE: Patient was placed in Trendelenburg position the left neck was prepped and draped in usual sterile fashion. Using 1% lidocaine plain the anterior cervical triangle was anesthetized with in the subcutaneous tissue. Using a finder needle 22-gauge we passed that the lateral aspect of the anterior cervical triangle lateral to the carotid artery and cannulated the jugular vein the needle was removed and then a 16-gauge Intracath was placed into the jugular vein. Through the Intracath a wire a J-wire was placed. Dilator was then utilized over the wire to dilate the tract and then that was removed the triple-lumen central venous catheter was placed over the J-wire and fixed to the skin on the left neck with 2-0 silk suture. A sterile dressing was applied. Chest x-ray confirmed good placement no pneumothorax.
[2019-06-19] MEDS: NORMAL SALINE 100 ML with PANTOPRAZOLE SODIUM 80 MG IV PRN ×2 (21:41)
[2019-06-19] MEDS: NORMAL SALINE 1000 ML 1,000 ML IV PRN (21:44)
[2019-06-19] MEDS ORDERED: PHYTONADIONE INJ 10 MG/1 ML AMPULE IV ONE (22:00)
--- NOTE | 2019-06-19 22:07 | EKG REPORT ---
SEVERITY:- ABNORMAL ECG - ATRIAL FLUTTER, A-RATE 200 NONSPECIFIC T ABNORMALITIES, DIFFUSE LEADS : Confirmed by: Yoav Harris 19-Jun-2019 22:06:50
[2019-06-19] MEDS ORDERED: ONDANSETRON 4 MG TAB.RAPDIS NG PRN (22:16)
[2019-06-19] MEDS: SUCRALFATE 1 GM TABLET NG SCH (23:37)
[2019-06-20] MEDS: ALBUMIN HUMAN 12.5 GM/50 ML RTUINJ IV SCH ×2 (01:47→05:25)
[2019-06-20 01:58] LABS: ABSOLUTE LYMPHOCYTES (AUTO) 0.4 10^3/uL (0.5-4.7); ABSOLUTE MONOCYTES (AUTO) 0.4 10^3/uL (0.1-1.4); ABSOLUTE NEUT (AUTO) 5.7 10^3/uL (1.7-8.2); BASOPHILS % (AUTO) 0.1 % (0-2); EOSINOPHILS % (AUTO) 0.1 % (0-6); HEMATOCRIT 22.8 % (37.9-51.0); LYMPHOCYTES % (AUTO) 5.7 % (13-45); MEAN CORPUSCULAR HEMOGLOBIN 31.2 pg (27.0-33.4); MEAN CORPUSCULAR HGB CONC 33.4 g/dL (32.0-36.0); MEAN CORPUSCULAR VOLUME 93 fl (80-97); MONOCYTES % (AUTO) 6.2 % (3-13); RED BLOOD COUNT 2.44 10^6/uL (4.35-5.55); RED CELL DISTRIBUTION WIDTH 14.8 % (11.5-14.0); SEGMENTED NEUTROPHILS % (AUTO) 87.9 % (42-78); TOTAL CELLS COUNTED % (AUTO) 100 %; WHITE BLOOD COUNT 6.5 10^3/uL (4.0-10.5)
[2019-06-20 02:01] LABS: INTERNATIONAL RATION (INR) 1.63; PROTHROMBIN TIME 19.5 SEC (11.4-15.4)
[2019-06-20 02:16] LABS: HEMOGLOBIN 7.6 g/dL (13.5-17.0)
[2019-06-20 02:17] LABS: PLATELET COUNT 90 10^3/uL (150-450)
[2019-06-20] MEDS ORDERED: PANTOPRAZOLE SODIUM 40 MG VIAL IV PRN (03:39)
[2019-06-20] MEDS: NORMAL SALINE 100 ML with PANTOPRAZOLE SODIUM 80 MG IV PRN ×4 (03:43→15:01)
[2019-06-20] MEDS: NORMAL SALINE 1000 ML 1,000 ML IV PRN ×3 (03:43→22:22)
[2019-06-20] MEDS ORDERED: OCTREOTIDE ACETATE INJ/PF 100 MCG/1 ML SDV ONE (05:20)
[2019-06-20] MEDS: NORMAL SALINE 500 ML with OCTREOTIDE ACETATE 500 MCG IV PRN ×4 (05:26→17:59)
[2019-06-20] MEDS: SUCRALFATE 1 GM TABLET NG SCH ×3 (05:26→17:12)
[2019-06-20 05:55] LABS: HEMATOCRIT 23.6 % (37.9-51.0); MEAN CORPUSCULAR HEMOGLOBIN 31.6 pg (27.0-33.4); MEAN CORPUSCULAR HGB CONC 33.8 g/dL (32.0-36.0); MEAN CORPUSCULAR VOLUME 94 fl (80-97); RED BLOOD COUNT 2.53 10^6/uL (4.35-5.55); RED CELL DISTRIBUTION WIDTH 15.1 % (11.5-14.0)
[2019-06-20 06:15] LABS: ANION GAP 13 (5-19); BLOOD UREA NITROGEN 69 mg/dL (7-20); CALCIUM 8.4 mg/dL (8.4-10.2); CARBON DIOXIDE 16 mmol/L (22-30); CHLORIDE 113 mmol/L (98-107); POTASSIUM 4.2 mmol/L (3.6-5.0)
[2019-06-20 06:20] LABS: GLUCOSE 62 mg/dL (75-110)
[2019-06-20 06:21] LABS: PLATELET COUNT 73 10^3/uL (150-450)
[2019-06-20 07:04] LABS: ABSOLUTE LYMPHOCYTES# (MANUAL) 0.4 10^3/uL (0.5-4.7); ABSOLUTE MONOCYTES # (MANUAL) 0.2 10^3/uL (0.1-1.4); ANISOCYTOSIS SLIGHT; BAND NEUTROPHILS % (MANUAL) 2 % (3-5); BASOPHILS % (MANUAL) 0 % (0-2); EOSINOPHILS % (MANUAL) 0 % (0-6); LYMPHOCYTES % (MANUAL) 6 % (13-45); MONOCYTES % (MANUAL) 3 % (3-13); PLATELET COMMENT DECREASED; SEGMENTED NEUTROPHILS % (MAN) 89 % (42-78); TOTAL CELLS COUNTED 100
[2019-06-20] MEDS ORDERED: VASOPRESSIN INJ 20 UNIT/1 ML VIAL ONE (07:53)
[2019-06-20] MEDS ORDERED: DEXTROSE 5%-WATER 250 ML with VASOPRESSIN 100 UNIT IV PRN ×4 (08:20→08:24)
[2019-06-20] MEDS ORDERED: NORMAL SALINE 250 ML IV PRN ×2 (08:25)
[2019-06-20] MEDS ORDERED: PANTOPRAZOLE SODIUM 40 MG VIAL IV SCH (10:00)
[2019-06-20] MEDS ORDERED: ONDANSETRON HCL INJ/PF 4 MG/2 ML SDV ONE (10:01)
[2019-06-20] MEDS ORDERED: FENTANYL CITRATE INJ/PF 100 MCG/2 ML AMPUL ONE (10:01)
[2019-06-20] MEDS ORDERED: DIPHENHYDRAMINE HCL 50 MG/ML VIAL ONE (10:01)
[2019-06-20] MEDS ORDERED: EPINEPHRINE INJ 1 MG/10 ML DISP.SYRIN ONE (10:02)
[2019-06-20] MEDS ORDERED: GLUCAGON,HUMAN RECOMB 1 MG INJ ONE (10:02)
[2019-06-20] MEDS ORDERED: FLUMAZENIL INJ 0.5 MG/5 ML VIAL ONE (10:02)
[2019-06-20] MEDS ORDERED: NALOXONE HCL INJ/PF 0.4 MG/1 ML SDV ONE (10:02)
[2019-06-20] MEDS ORDERED: MIDAZOLAM 2 MG/2 ML INJ ONE (10:02)
--- NOTE | 2019-06-20 10:26 | PDOC PROGRESS REPORT ---
Subjective Progress Note for:: 06/20/19 Subjective:: Still encephalopathic Reason For Visit: DEHYDRATION,CIRRHOSIS,ARF,ASCITES,POSSIBLE CURRENT Physical Exam Vital Signs: Temp Pulse Resp BP Pulse Ox 98.2 F 92 15 89/66 L 98 06/20/19 10:00 06/20/19 07:45 06/20/19 10:00 06/20/19 10:00 06/20/19 10:00 Intake & Output 06/19/19 06/20/19 06/21/19 06:59 06:59 06:59 Intake Total 5712 492 Output Total 631 20 Balance 5081 472 Weight 65.8 kg General appearance: PRESENT: no acute distress, disheveled, thin Head exam: PRESENT: atraumatic, normocephalic Ear exam: PRESENT: normal external ear exam Mouth exam: PRESENT: dry mucosa Neck exam: PRESENT: other - Central line in place in [facility]. Respiratory exam: PRESENT: clear to auscultation zak, decreased breath sounds, unlabored Cardiovascular exam: PRESENT: RRR. ABSENT: diastolic murmur, rubs, systolic murmur Vascular exam: PRESENT: normal capillary refill GI/Abdominal exam: PRESENT: ascites, diminished bowel sounds, distended, hernia, hypoactive bowel sounds, soft Rectal exam: PRESENT: deferred, bloody stool Gentrourinary exam: PRESENT: indwelling catheter Extremities exam: PRESENT: full ROM Musculoskeletal exam: PRESENT: full ROM, normal inspection Neurological exam: PRESENT: altered Skin exam: PRESENT: petechiae, skin tears, warm Results Laboratory Results: 06/20/19 05:42 06/20/19 05:42 06/19/19 06/19/19 06/19/19 13:37 13:37 13:37 WBC 8.8 RBC 2.81 L Hgb 8.9 L Hct 26.8 L MCV 96 MCH 31.5 MCHC 33.0 RDW 16.2 H Plt Count 88 L Seg Neutrophils % 88.1 H VBG pH VBG pCO2 VBG HCO3 VBG Base Excess Sodium 135.2 L Potassium 4.6 Chloride 106 Carbon Dioxide 20 L Anion Gap 9 BUN 86 H Creatinine 3.07 H Est GFR ( Amer) 24 L Glucose 93 Lactic Acid 2.9 H Calcium 9.0 Magnesium Total Bilirubin 1.7 H AST 59 Alkaline Phosphatase 67 Ammonia Total Protein 5.2 L Albumin 2.3 L Urine Color Urine Appearance Urine pH Ur Specific [place] Urine Protein Urine Glucose (UA) Urine Ketones Urine Blood Urine RBC (Auto) Blood Type Antibody Screen 06/19/19 06/19/19 06/19/19 13:37 13:37 14:56 WBC RBC Hgb Hct MCV MCH MCHC RDW Plt Count Seg Neutrophils % VBG pH 7.37 VBG pCO2 35.3 VBG HCO3 19.9 L VBG Base Excess -4.8 Sodium Potassium Chloride Carbon Dioxide Anion Gap BUN Creatinine Est GFR ( Amer) Glucose Lactic Acid Calcium Magnesium Total Bilirubin AST Alkaline Phosphatase Ammonia 9.4 Total Protein Albumin Urine Color DEJUAN Urine Appearance SLIGHTLY-CLOUDY Urine pH 5.0 Ur Specific [place] 1.020 Urine Protein 30 H Urine Glucose (UA) NEGATIVE Urine Ketones NEGATIVE Urine Blood SMALL H Urine RBC (Auto) 15 Blood Type Antibody Screen 06/19/19 06/19/19 06/19/19 17:05 17:05 18:35 WBC RBC Hgb Hct MCV MCH MCHC RDW Plt Count Seg Neutrophils % VBG pH VBG pCO2 VBG HCO3 VBG Base Excess Sodium Potassium Chloride Carbon Dioxide Anion Gap BUN Creatinine Est GFR ( Amer) Glucose Lactic Acid Cancelled 2.0 Calcium Magnesium Total Bilirubin AST Alkaline Phosphatase Ammonia Total Protein Albumin Urine Color Urine Appearance Urine pH Ur Specific [place] Urine Protein Urine Glucose (UA) Urine Ketones Urine Blood Urine RBC (Auto) Blood Type O POSITIVE Antibody Screen NEGATIVE 06/19/19 06/20/19 06/20/19 18:35 01:42 05:42 WBC 6.5 6.0 RBC 2.44 L 2.53 L Hgb 7.6 L 8.0 L Hct 22.8 L 23.6 L MCV 93 94 MCH 31.2 31.6 MCHC 33.4 33.8 RDW 14.8 H 15.1 H Plt Count 90 L 73 L Seg Neutrophils % 87.9 H Not Reportable VBG pH VBG pCO2 VBG HCO3 VBG Base Excess Sodium Potassium Chloride Carbon Dioxide Anion Gap BUN Creatinine Est GFR ( Amer) Glucose Lactic Acid Calcium Magnesium 1.9 Total Bilirubin AST Alkaline Phosphatase Ammonia Total Protein Albumin Urine Color Urine Appearance Urine pH Ur Specific [place] Urine Protein Urine Glucose (UA) Urine Ketones Urine Blood Urine RBC (Auto) Blood Type Antibody Screen 06/20/19 05:42 WBC RBC Hgb Hct MCV MCH MCHC RDW Plt Count Seg Neutrophils % VBG pH VBG pCO2 VBG HCO3 VBG Base Excess Sodium 142.0 Potassium 4.2 Chloride 113 H Carbon Dioxide 16 L Anion Gap 13 BUN 69 H Creatinine 2.83 H Est GFR ( Amer) 27 L Glucose 62 L Lactic Acid Calcium 8.4 Magnesium Total Bilirubin AST Alkaline Phosphatase Ammonia Total Protein Albumin Urine Color Urine Appearance Urine pH Ur Specific [place] Urine Protein Urine Glucose (UA) Urine Ketones Urine Blood Urine RBC (Auto) Blood Type Antibody Screen 06/19/19 06/19/19 13:37 13:37 Troponin I 0.086 NT-Pro-B Natriuret Pep 6470 H Impressions: Chest X-Ray 06/19/19 13:36 IMPRESSION: NO ACUTE RADIOGRAPHIC FINDING IN THE CHEST. Head CT 06/19/19 15:12 IMPRESSION: NORMAL BRAIN CT WITHOUT CONTRAST. EVIDENCE OF ACUTE STROKE: NO. Abdomen/Pelvis CT 06/19/19 15:25 IMPRESSION: 1. Findings consistent with cirrhosis of the liver with evidence of small nodular liver. Massive ascites. 2. Hyperdense gallbladder. The possibility of cholelithiasis cannot be excluded. Hyperdensity could be secondary to excretion of contrast if prior contrast administration performed. 3. 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 The aneurysm measures 5.4 x 5 x 5.7 cm. 4. Thickening of the gastric mucosa which could be seen with inflammatory change. Clinical correlation needed. Hiatal hernia. 5. Chronic interstitial changes in right lower lobe. Old granulomatous disease. Assessment & Plan - Diagnosis (1) Cirrhosis of liver Qualifiers: Hepatic cirrhosis type: alcoholic cirrhosis Ascites presence: with ascites Qualified Code(s): K70.31 - Alcoholic cirrhosis of liver with ascites Is this a current diagnosis for this admission?: Yes Plan: Supportive care with IVF, albumin lasix and aldactone. (2) GI bleeding Qualifiers: GI bleed type/associated pathology: unspecified gastrointestinal hemorrhage type Qualified Code(s): K92.2 - Gastrointestinal hemorrhage, unspecified Is this a current diagnosis for this admission?: Yes Plan: No active bleeding by EGD yesterday.Extensive gastric and esophageal varices. Prepped for colonoscopy later today. (3) Acute kidney injury Is this a current diagnosis for this admission?: Yes Plan: At present this does not seem to be hepatoreanal syndrome with presence of severe dehydration and GI bleeding. Urine output though is minimal. (4) Dehydration Is this a current diagnosis for this admission?: Yes Plan: Resolving with fluid, blood products. Ascites worse but not tense. Lasix give one time. (5) Encephalopathy acute Is this a current diagnosis for this admission?: Yes Plan: Does seem to be a multifactorial cause. ETOH WD may be playing a role. Pt too unstable for full CIWA protocol. - Time Time Spent with patient: 35 or more minutes Total Critical Time (Minutes): 40 Level of Care: ICU Medications reviewed and adjusted accordingly: Yes Anticipated discharge: SNF Within: Other - Inpatient Certification Based on my medical assessment, after consideration of the patient's comorbidities, presenting symptoms, or acuity I expect that the services needed warrant INPATIENT care.: Yes I certify that my determination is in accordance with my understanding of Medicare's requirements for reasonable and necessary INPATIENT services [42 CFR 412.3e].: Yes Medical Necessity: Failure to Improve With Outpatient Therapy, Significant Comorbidiites Make Outpatient Treatment Too Risky, Need Close Monitoring Due to Risk of Patient Decompensation, Need For IV Fluids, Need for Neurological Checks
[2019-06-20] MEDS: MIDAZOLAM 2 MG/2 ML INJ ONE ×2 (10:50→10:58)
--- NOTE | 2019-06-20 11:47 | PDOC PROGRESS REPORT ---
Subjective Progress Note for:: 06/20/19 Subjective:: Patient awake but not responsive and disoriented Reason For Visit: DEHYDRATION,CIRRHOSIS,ARF,ASCITES,POSSIBLE CURRENT Physical Exam Vital Signs: Temp Pulse Resp BP Pulse Ox 98.2 F 90 19 86/59 L 92 06/20/19 10:00 06/20/19 11:20 06/20/19 11:20 06/20/19 11:20 06/20/19 11:20 Intake & Output 06/19/19 06/20/19 06/21/19 06:59 06:59 06:59 Intake Total 5712 492 Output Total 631 20 Balance 5081 472 Weight 65.8 kg General appearance: PRESENT: mild distress, thin, other - Awake but disoriented, poorly responsive Head exam: PRESENT: atraumatic GI/Abdominal exam: PRESENT: distended - Due to ascites, soft Neurological exam: PRESENT: altered Skin exam: PRESENT: other - Multiple areas of ecchymosis in the upper and lower extremities Results Laboratory Results: 06/20/19 05:42 06/20/19 05:42 06/19/19 06/19/19 06/19/19 13:37 13:37 13:37 WBC 8.8 RBC 2.81 L Hgb 8.9 L Hct 26.8 L MCV 96 MCH 31.5 MCHC 33.0 RDW 16.2 H Plt Count 88 L Seg Neutrophils % 88.1 H VBG pH VBG pCO2 VBG HCO3 VBG Base Excess Sodium 135.2 L Potassium 4.6 Chloride 106 Carbon Dioxide 20 L Anion Gap 9 BUN 86 H Creatinine 3.07 H Est GFR ( Amer) 24 L Glucose 93 Lactic Acid 2.9 H Calcium 9.0 Magnesium Total Bilirubin 1.7 H AST 59 Alkaline Phosphatase 67 Ammonia Total Protein 5.2 L Albumin 2.3 L Urine Color Urine Appearance Urine pH Ur Specific [place] Urine Protein Urine Glucose (UA) Urine Ketones Urine Blood Urine RBC (Auto) Blood Type Antibody Screen 06/19/19 06/19/19 06/19/19 13:37 13:37 14:56 WBC RBC Hgb Hct MCV MCH MCHC RDW Plt Count Seg Neutrophils % VBG pH 7.37 VBG pCO2 35.3 VBG HCO3 19.9 L VBG Base Excess -4.8 Sodium Potassium Chloride Carbon Dioxide Anion Gap BUN Creatinine Est GFR ( Amer) Glucose Lactic Acid Calcium Magnesium Total Bilirubin AST Alkaline Phosphatase Ammonia 9.4 Total Protein Albumin Urine Color DEJUAN Urine Appearance SLIGHTLY-CLOUDY Urine pH 5.0 Ur Specific [place] 1.020 Urine Protein 30 H Urine Glucose (UA) NEGATIVE Urine Ketones NEGATIVE Urine Blood SMALL H Urine RBC (Auto) 15 Blood Type Antibody Screen 06/19/19 06/19/19 06/19/19 17:05 17:05 18:35 WBC RBC Hgb Hct MCV MCH MCHC RDW Plt Count Seg Neutrophils % VBG pH VBG pCO2 VBG HCO3 VBG Base Excess Sodium Potassium Chloride Carbon Dioxide Anion Gap BUN Creatinine Est GFR ( Amer) Glucose Lactic Acid Cancelled 2.0 Calcium Magnesium Total Bilirubin AST Alkaline Phosphatase Ammonia Total Protein Albumin Urine Color Urine Appearance Urine pH Ur Specific [place] Urine Protein Urine Glucose (UA) Urine Ketones Urine Blood Urine RBC (Auto) Blood Type O POSITIVE Antibody Screen NEGATIVE 06/19/19 06/20/19 06/20/19 18:35 01:42 05:42 WBC 6.5 6.0 RBC 2.44 L 2.53 L Hgb 7.6 L 8.0 L Hct 22.8 L 23.6 L MCV 93 94 MCH 31.2 31.6 MCHC 33.4 33.8 RDW 14.8 H 15.1 H Plt Count 90 L 73 L Seg Neutrophils % 87.9 H Not Reportable VBG pH VBG pCO2 VBG HCO3 VBG Base Excess Sodium Potassium Chloride Carbon Dioxide Anion Gap BUN Creatinine Est GFR ( Amer) Glucose Lactic Acid Calcium Magnesium 1.9 Total Bilirubin AST Alkaline Phosphatase Ammonia Total Protein Albumin Urine Color Urine Appearance Urine pH Ur Specific [place] Urine Protein Urine Glucose (UA) Urine Ketones Urine Blood Urine RBC (Auto) Blood Type Antibody Screen 06/20/19 05:42 WBC RBC Hgb Hct MCV MCH MCHC RDW Plt Count Seg Neutrophils % VBG pH VBG pCO2 VBG HCO3 VBG Base Excess Sodium 142.0 Potassium 4.2 Chloride 113 H Carbon Dioxide 16 L Anion Gap 13 BUN 69 H Creatinine 2.83 H Est GFR ( Amer) 27 L Glucose 62 L Lactic Acid Calcium 8.4 Magnesium Total Bilirubin AST Alkaline Phosphatase Ammonia Total Protein Albumin Urine Color Urine Appearance Urine pH Ur Specific [place] Urine Protein Urine Glucose (UA) Urine Ketones Urine Blood Urine RBC (Auto) Blood Type Antibody Screen 11/09/19 11/09/19 13:37 13:37 Troponin I 0.086 NT-Pro-B Natriuret Pep 6470 H Impressions: Chest X-Ray 06/19/19 13:36 IMPRESSION: NO ACUTE RADIOGRAPHIC FINDING IN THE CHEST. Head CT 06/19/19 15:12 IMPRESSION: NORMAL BRAIN CT WITHOUT CONTRAST. EVIDENCE OF ACUTE STROKE: NO. Abdomen/Pelvis CT 06/19/19 15:25 IMPRESSION: 1. Findings consistent with cirrhosis of the liver with evidence of small nodular liver. Massive ascites. 2. Hyperdense gallbladder. The possibility of cholelithiasis cannot be excluded. Hyperdensity could be secondary to excretion of contrast if prior contrast administration performed. 3. 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 The aneurysm measures 5.4 x 5 x 5.7 cm. 4. Thickening of the gastric mucosa which could be seen with inflammatory change. Clinical correlation needed. Hiatal hernia. 5. Chronic interstitial changes in right lower lobe. Old granulomatous disease. Assessment & Plan - Diagnosis (2) Acute kidney injury Is this a current diagnosis for this admission?: Yes (3) Ascites Qualifiers: Ascites type: other type Qualified Code(s): R18.8 - Other ascites Is this a current diagnosis for this admission?: Yes (4) Cirrhosis of liver Qualifiers: Hepatic cirrhosis type: alcoholic cirrhosis Ascites presence: with ascites Qualified Code(s): K70.31 - Alcoholic cirrhosis of liver with ascites Is this a current diagnosis for this admission?: Yes (5) GI bleeding Qualifiers: GI bleed type/associated pathology: unspecified gastrointestinal hemorrhage type Qualified Code(s): K92.2 - Gastrointestinal hemorrhage, unspecified Is this a current diagnosis for this admission?: Yes - Time Time Spent with patient: 35 or more minutes - Including patient evaluation and colonoscopy time - Plan Summary Plan Summary: Assessment: Alcoholic cirrhosis, end-stage with thrombocytopenia, coagulopathy, ascites, disorientation Lower gastrointestinal bleeding of unknown cause Upper gastroduodenoscopy done yesterday by Dr. Medina reveals diffuse esophageal and gastric varicosities not actively bleeding The patient still presents with large amount of blood and clots from the rectum Status post bowel prep overnight Stable H&H since last night before administration of 2 PRBCs, 2 plasmapheresis units, and 4 units of fresh frozen plasma The patient still coagulopathic despite administration of platelets and fresh frozen plasma with a protime of 19.5 and INR 1.6 Poor kidney function with a creatinine of 2.8 Plan colonoscopy with conscious sedation in the ICU this morning Plan: Colonoscopy reveals no active bleeding from the colon; however, the blood clots coming from the ileocecal valve as per small bowel bleeding I am recommending mesenteric angiogram at this point to be done by interventional radiology However, interventional radiology recommends a CT abdomen with angiogram be prior to doing a mesenteric angiogram Both procedures are frowned from the risk of worsening the patient kidney failure Any surgical procedure in this patient will be very risky because of his poor general condition and coagulopathy, most likely the patient would not survive any procedure. Therefore, I do not recommend any surgical intervention on this patient due to age, coagulopathy, liver disease, and poor general conditions. Comfort care might seem more appropriate for this patient. I will sign off. Please call us with questions.
--- NOTE | 2019-06-20 11:52 | Operative Report ---
Nonrecallable Operative Report DATE OF SURGERY: 06/20/19 PREOPERATIVE DIAGNOSIS: Lower gastrointestinal bleeding. Cirrhosis with gastro- esophageal varices. S/p EGD on June 20, 2019 negative for upper gastrointestinal bleeding POSTOPERATIVE DIAGNOSIS: Same. Small bowel bleeding OPERATION: Colonoscopy to cecum. Intravenous sedation provided by Dr. Son SURGEON: SILVIA SON ANESTHESIA: Moderate Sedation - Provided by Dr. Son, 1 mg IV push of Versed TISSUE REMOVED OR ALTERED: None COMPLICATIONS: None ESTIMATED BLOOD LOSS: Not applicable INTRAOPERATIVE FINDINGS: No areas of active bleeding noted in the entire colon including the rectum; blood clots noted coming out from the ileocecal valve PROCEDURE: The colonoscopy was performed in the ICU, the patient was placed in the lateral decubitus position, and IV sedation was provided by Dr. Son. The scope was inserted into the rectum and the several segments of the colon up to the cecum. The preparation was good: no masses, polyps, strictures, mucosal changes, and diverticula were noted. No areas of active bleeding were noted throughout the entire colon. Examination of the cecum revealed blood clots actively coming from the ileocecal valve as per small bowel bleeding. The terminal ileum was not cannulated due to his position. The scope was then slowly withdrawn for a duration of approximately 7 minutes from the colon and extracted from the rectum. and again no areas of active bleeding were noted. When the instrument reached the rectum, it was retroflexed and no rectal bleeding hemorrhoids were noted. The patient tolerated procedure well and maintained in the ICU in guarded conditions.
[2019-06-20 12:40] LABS: HEMATOCRIT 21.4 % (37.9-51.0); MEAN CORPUSCULAR HEMOGLOBIN 31.4 pg (27.0-33.4); MEAN CORPUSCULAR HGB CONC 33.7 g/dL (32.0-36.0); MEAN CORPUSCULAR VOLUME 93 fl (80-97); RED BLOOD COUNT 2.29 10^6/uL (4.35-5.55); RED CELL DISTRIBUTION WIDTH 14.8 % (11.5-14.0); WHITE BLOOD COUNT 5.2 10^3/uL (4.0-10.5)
[2019-06-20 12:48] LABS: HEMOGLOBIN 7.2 g/dL (13.5-17.0); PLATELET COUNT 95 10^3/uL (150-450)
[2019-06-20 12:50] LABS: INTERNATIONAL RATION (INR) 1.59; PROTHROMBIN TIME 19.1 SEC (11.4-15.4)
[2019-06-20 12:51] LABS: ALBUMIN 2.5 g/dL (3.5-5.0); ALKALINE PHOSPHATASE 52 U/L (38-126); ANION GAP 12 (5-19); ASPARTATE AMINO TRANSFERASE 45 U/L (17-59); BILIRUBIN,DIRECT 0.9 mg/dL (0.0-0.4); BILIRUBIN,TOTAL 1.5 mg/dL (0.2-1.3); BLOOD UREA NITROGEN 68 mg/dL (7-20); CALCIUM 8.2 mg/dL (8.4-10.2); CARBON DIOXIDE 15 mmol/L (22-30); CHLORIDE 114 mmol/L (98-107); PARTIAL THROMBOPLASTIN TIME 37.6 SEC (23.5-35.8); POTASSIUM 3.8 mmol/L (3.6-5.0); TOTAL PROTEIN 5.1 g/dL (6.3-8.2)
[2019-06-20 12:54] LABS: GLUCOSE 68 mg/dL (75-110)
[2019-06-20 13:10] LABS: ABSOLUTE LYMPHOCYTES# (MANUAL) 0.3 10^3/uL (0.5-4.7); ABSOLUTE MONOCYTES # (MANUAL) 0.3 10^3/uL (0.1-1.4); BASOPHILS % (MANUAL) 0 % (0-2); EOSINOPHILS % (MANUAL) 1 % (0-6); LYMPHOCYTES % (MANUAL) 6 % (13-45); MONOCYTES % (MANUAL) 6 % (3-13); SEGMENTED NEUTROPHILS % (MAN) 87 % (42-78); TOTAL CELLS COUNTED 100
[2019-06-20 13:15] LABS: ANISOCYTOSIS 1+; POLYCHROMASIA SLIGHT
[2019-06-20 13:16] LABS: PLATELET COMMENT DECREASED
[2019-06-20] MEDS ORDERED: BISACODYL 5 MG TABEC PO PRN (21:41)
[2019-06-20] MEDS ORDERED: (PENDING PHARMACY ID) (Fluticasone/Salmeterol 2 PUFF) IH SCH (22:00)
[2019-06-20 22:49] LABS: ABSOLUTE LYMPHOCYTES (AUTO) 0.3 10^3/uL (0.5-4.7); ABSOLUTE MONOCYTES (AUTO) 0.3 10^3/uL (0.1-1.4); ABSOLUTE NEUT (AUTO) 5.1 10^3/uL (1.7-8.2); BASOPHILS % (AUTO) 0.5 % (0-2); EOSINOPHILS % (AUTO) 0.1 % (0-6); HEMATOCRIT 30.5 % (37.9-51.0); LYMPHOCYTES % (AUTO) 5.2 % (13-45); MEAN CORPUSCULAR HEMOGLOBIN 31.4 pg (27.0-33.4); MEAN CORPUSCULAR HGB CONC 34.3 g/dL (32.0-36.0); MEAN CORPUSCULAR VOLUME 92 fl (80-97); MONOCYTES % (AUTO) 5.6 % (3-13); PLATELET COUNT 126 10^3/uL (150-450); RED BLOOD COUNT 3.33 10^6/uL (4.35-5.55); RED CELL DISTRIBUTION WIDTH 15.4 % (11.5-14.0); SEGMENTED NEUTROPHILS % (AUTO) 88.6 % (42-78); TOTAL CELLS COUNTED % (AUTO) 100 %; WHITE BLOOD COUNT 5.7 10^3/uL (4.0-10.5)
[2019-06-20 22:53] LABS: HEMOGLOBIN 10.5 g/dL (13.5-17.0)
[2019-06-21] MEDS: SUCRALFATE 1 GM TABLET NG SCH ×2 (00:20→05:19)
[2019-06-21] MEDS: NORMAL SALINE 100 ML with PANTOPRAZOLE SODIUM 80 MG IV PRN ×2 (01:11)
[2019-06-21] MEDS: NORMAL SALINE 500 ML with OCTREOTIDE ACETATE 500 MCG IV PRN ×2 (04:18)
[2019-06-21] MEDS: NORMAL SALINE 1000 ML 1,000 ML IV PRN (04:19)
[2019-06-21] MEDS ORDERED: FLUTICASONE/VILANTEROL 200-25 MCG/DOSE IH SCH (08:00)
[2019-06-21] MEDS ORDERED: PANTOPRAZOLE SODIUM 40 MG TABLET.DR PO SCH (09:00)
[2019-06-21] MEDS ORDERED: THIAMINE HCL 500 MG in NORMAL SALINE 250 ML IV SCH (10:00)
[2019-06-21] MEDS ORDERED: MONTELUKAST SODIUM 10 MG TABLET PO SCH (10:00)
[2019-06-21] MEDS ORDERED: FOLIC ACID INJ 5 MG/1 ML 10 ML VIAL IV SCH (10:00)
[2019-06-21] MEDS ORDERED: THIAMINE HCL 500 MG, FOLIC ACID 1 MG in NORMAL SALINE 250 ML IV SCH (10:00)
[2019-06-21] MEDS ORDERED: THIAMINE HCL 100 MG TABLET PO SCH (10:00)
--- NOTE | 2019-06-21 11:26 | PDOC PROGRESS REPORT ---
Subjective Progress Note for:: 06/21/19 Subjective:: Patient continues to be confused. No hemodynamic instability. No active bleeding. No tachycardia. No hematemesis. Reason For Visit: DEHYDRATION,CIRRHOSIS,ARF,ASCITES,POSSIBLE CURRENT Physical Exam Vital Signs: Temp Pulse Resp BP Pulse Ox 98.1 F 66 10 L 101/71 99 06/21/19 08:00 06/21/19 08:00 06/21/19 08:00 06/21/19 08:00 06/21/19 08:00 Intake & Output 06/20/19 06/21/19 06/22/19 06:59 06:59 06:59 Intake Total 5712 6158 Output Total 631 668 40 Balance 5081 5490 -40 Weight 65.8 kg 69.6 kg Physical Exam: Ill, emaciated, non-toxic, confused General appearance: PRESENT: no acute distress, disheveled, thin Head exam: PRESENT: atraumatic Eye exam: PRESENT: conjunctiva pink, PERRLA, scleral icterus. ABSENT: conjunctival injection, nystagmus Mouth exam: PRESENT: dry mucosa, neck supple Teeth exam: PRESENT: edentulous Neck exam: ABSENT: carotid bruit, JVD, lymphadenopathy, thyromegaly, tracheal deviation Respiratory exam: PRESENT: clear to auscultation zak, unlabored. ABSENT: accessory muscle use Cardiovascular exam: PRESENT: bradycardia, RRR, +S1, +S2 Pulses: PRESENT: +1 pedal pulses bilateral Vascular exam: PRESENT: normal capillary refill. ABSENT: pallor GI/Abdominal exam: PRESENT: ascites, diminished bowel sounds, hypoactive bowel sounds, soft. ABSENT: distended, firm, guarding, mass, Junior's sign, rebound, rigid, tenderness Rectal exam: PRESENT: deferred Gentrourinary exam: PRESENT: indwelling catheter Extremities exam: ABSENT: joint swelling, pedal edema Musculoskeletal exam: ABSENT: ambulatory, deformity, dislocation Neurological exam: PRESENT: altered. ABSENT: oriented to person, oriented to place, oriented to time, oriented to situation Additional comments: No asterixis. GCS: 3-2-5 Psychiatric exam: PRESENT: flat affect, unusual affect. ABSENT: agitated Focused psych exam: PRESENT: psychomotor agitation - When examined Skin exam: PRESENT: dry. ABSENT: abrasion, cyanosis, erythema, mottled, pallor, petechiae, urticaria, vesicles Results Laboratory Results: 06/20/19 22:34 06/20/19 12:25 06/19/19 06/20/19 06/20/19 18:35 12:25 12:25 WBC 5.2 RBC 2.29 L Hgb 7.2 L Hct 21.4 L MCV 93 MCH 31.4 MCHC 33.7 RDW 14.8 H Plt Count 95 L Seg Neutrophils % Not Reportable Sodium 141.3 Potassium 3.8 Chloride 114 H Carbon Dioxide 15 L Anion Gap 12 BUN 68 H Creatinine 2.83 H Est GFR ( Amer) 27 L Glucose 68 L Calcium 8.2 L Magnesium 1.8 Total Bilirubin 1.5 H AST 45 Alkaline Phosphatase 52 Total Protein 5.1 L Albumin 2.5 L Blood Type O POSITIVE Antibody Screen NEGATIVE 06/20/19 22:34 WBC 5.7 RBC 3.33 L Hgb 10.5 L D Hct 30.5 L MCV 92 MCH 31.4 MCHC 34.3 RDW 15.4 H Plt Count 126 L Seg Neutrophils % 88.6 H Sodium Potassium Chloride Carbon Dioxide Anion Gap BUN Creatinine Est GFR ( Amer) Glucose Calcium Magnesium Total Bilirubin AST Alkaline Phosphatase Total Protein Albumin Blood Type Antibody Screen 06/19/19 14:56 Clean Catch Midstream Urine Culture - Final NO GROWTH 2 DAYS 06/19/19 06/19/19 13:37 13:37 Troponin I 0.086 NT-Pro-B Natriuret Pep 6470 H Impressions: Chest X-Ray 06/19/19 13:36 IMPRESSION: NO ACUTE RADIOGRAPHIC FINDING IN THE CHEST. Head CT 06/19/19 15:12 IMPRESSION: NORMAL BRAIN CT WITHOUT CONTRAST. EVIDENCE OF ACUTE STROKE: NO. Abdomen/Pelvis CT 06/19/19 15:25 IMPRESSION: 1. Findings consistent with cirrhosis of the liver with evidence of small nodular liver. Massive ascites. 2. Hyperdense gallbladder. The possibility of cholelithiasis cannot be excluded. Hyperdensity could be secondary to excretion of contrast if prior contrast administration performed. 3. 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 The aneurysm measures 5.4 x 5 x 5.7 cm. 4. Thickening of the gastric mucosa which could be seen with inflammatory change. Clinical correlation needed. Hiatal hernia. 5. Chronic interstitial changes in right lower lobe. Old granulomatous disease. Assessment & Plan - Diagnosis (1) Acute on chronic blood loss anemia Is this a current diagnosis for this admission?: Yes (2) Metabolic encephalopathy Is this a current diagnosis for this admission?: Yes (3) Hepatic encephalopathy syndrome Is this a current diagnosis for this admission?: Yes (4) Emaciation Is this a current diagnosis for this admission?: Yes (5) Cirrhosis of liver Qualifiers: Hepatic cirrhosis type: alcoholic cirrhosis Ascites presence: with ascites Qualified Code(s): K70.31 - Alcoholic cirrhosis of liver with ascites Is this a current diagnosis for this admission?: Yes (6) ETOH abuse Is this a current diagnosis for this admission?: Yes (7) Varices of esophagus determined by endoscopy Is this a current diagnosis for this admission?: Yes (8) 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 Is this a current diagnosis for this admission?: Yes (9) Coagulopathy Is this a current diagnosis for this admission?: Yes (10) 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 Is this a current diagnosis for this admission?: Yes - Time Time Spent with patient: 35 or more minutes Total Critical Time (Minutes): 60 Level of Care: ICU Medications reviewed and adjusted accordingly: Yes Anticipated discharge: Hospice Within: within 24 hours - Inpatient Certification Based on my medical assessment, after consideration of the patient's comorbidities, presenting symptoms, or acuity I expect that the services needed warrant INPATIENT care.: Yes I certify that my determination is in accordance with my understanding of Medicare's requirements for reasonable and necessary INPATIENT services [42 CFR 412.3e].: Yes Medical Necessity: Need Close Monitoring Due to Risk of Patient Decompensation, Need For IV Fluids, Need For Continuous Telemetry Monitoring, Risk of Diagnosis Which Will Require Inpatient Eval/Care/Monitoring Post Hospital Care: D/C Rvda Master Certified Rv Technician Documentation - Plan Summary Plan Summary: 06.21.19: Has significant encephalopathy not explained by hyperammonia anemia. Suspicious that he may have an underlying degree of Wernicke's Korsakoff and hav e started thiamine therapy. Patient has significant initiated appearance and has a significant amount of weight loss in the last 6 months. His activities of daily living have been affected by his continued insidious decline in health. I am suspicious that there is an underlying metastatic process which is the etiology of his decline coupled synergistically to his long-standing alcohol use. He also has significant atherosclerotic disease and a component of vascular insufficiency of the gut may also be playing a part. We had a lengthy discussion with the family who has made a request that no aggressive measures be further carried out. When given the option for routine medication such as Protonix and octreotide they elected to just only provide comfort supportive care. We believe that this request is reasonable. We did send blood work to evaluate for pancreatic and liver malignancy. We have consulted hospice/palliative care as well. Discontinue all nonessential items. Have assured the family that the patient's wishes regarding no aggressive care, DNR and comfort care will be provided protecting the integrity of his wishes.
[2019-06-22 07:30] VITALS: BP 98/76
--- NOTE | 2019-06-22 15:51 | PDOC PROGRESS REPORT ---
Subjective Progress Note for:: 06/22/19 Subjective:: 06.22.19: Patient was referred and accepted to hospice. Had improvement in mentation last evening. He is aware of his illness. No complaints such as dyspnea. No abdominal pain. No active bleeding. Has had some blood from NGT but no hypotension. Discussed with surgery and followed up confirmation of malignancy. According to our surgery colleagues they have record of the adeno CA with markers consistent with hepatocellular carcinoma. Currently under consideration for hospice. 06.21.19: Patient continues to be confused. No hemodynamic instability. No active bleeding. No tachycardia. No hematemesis. Reason For Visit: DEHYDRATION,CIRRHOSIS,ARF,ASCITES,POSSIBLE CURRENT Physical Exam Vital Signs: Temp Pulse Resp BP Pulse Ox 96.3 F L 65 16 99/62 L 98 06/22/19 02:00 06/21/19 10:00 06/22/19 02:00 06/21/19 18:42 06/21/19 16:11 Intake & Output 06/20/19 06/21/19 06/22/19 06:59 06:59 06:59 Intake Total 5712 6158 Output Total 631 668 200 Balance 5081 5490 -200 Weight 65.8 kg 69.6 kg Physical Exam: Ill appearing, non-toxic, NAD. Non-intubated. Responsive General appearance: PRESENT: no acute distress, cooperative, hard of hearing, thin - Emaciated Eye exam: PRESENT: conjunctival injection, conjunctiva pink, EOMI, PERRLA. ABSENT: nystagmus Mouth exam: PRESENT: dry mucosa Teeth exam: PRESENT: edentulous Neck exam: ABSENT: carotid bruit, JVD, lymphadenopathy, thyromegaly, tracheal deviation Respiratory exam: PRESENT: clear to auscultation zak, unlabored. ABSENT: accessory muscle use, rhonchi, stridor, tachypnea, wheezes Cardiovascular exam: PRESENT: RRR, +S1, +S2 Pulses: ABSENT: normal dorsalis pedis pul Vascular exam: PRESENT: normal capillary refill GI/Abdominal exam: PRESENT: ascites, diminished bowel sounds, distended, firm, hypoactive bowel sounds. ABSENT: guarding, mass, Junior's sign, organolmegaly, rebound, rigid, soft, tenderness Rectal exam: PRESENT: deferred Gentrourinary exam: PRESENT: indwelling catheter Extremities exam: ABSENT: joint swelling, pedal edema Musculoskeletal exam: PRESENT: normal inspection. ABSENT: deformity, dislocation Neurological exam: PRESENT: altered - Alternating lethargy with some ability to speak. Psychiatric exam: PRESENT: flat affect. ABSENT: agitated Focused psych exam: ABSENT: psychomotor agitation, restlessness Skin exam: PRESENT: intact, pallor. ABSENT: cyanosis, erythema, jaundice, mottled, petechiae Results Laboratory Results: 06/20/19 22:34 06/20/19 12:25 06/19/19 14:56 Clean Catch Midstream Urine Culture - Final NO GROWTH 2 DAYS 06/19/19 06/19/19 13:37 13:37 Troponin I 0.086 NT-Pro-B Natriuret Pep 6470 H Impressions: Chest X-Ray 06/19/19 13:36 IMPRESSION: NO ACUTE RADIOGRAPHIC FINDING IN THE CHEST. Head CT 06/19/19 15:12 IMPRESSION: NORMAL BRAIN CT WITHOUT CONTRAST. EVIDENCE OF ACUTE STROKE: NO. Abdomen/Pelvis CT 06/19/19 15:25 IMPRESSION: 1. Findings consistent with cirrhosis of the liver with evidence of small nodular liver. Massive ascites. 2. Hyperdense gallbladder. The possibility of cholelithiasis cannot be excluded. Hyperdensity could be secondary to excretion of contrast if prior contrast administration performed. 3. 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 The aneurysm measures 5.4 x 5 x 5.7 cm. 4. Thickening of the gastric mucosa which could be seen with inflammatory change. Clinical correlation needed. Hiatal hernia. 5. Chronic interstitial changes in right lower lobe. Old granulomatous disease. Assessment & Plan - Diagnosis (1) Acute on chronic blood loss anemia Is this a current diagnosis for this admission?: Yes (2) Hepatocellular carcinoma Is this a current diagnosis for this admission?: Yes (3) Metabolic encephalopathy Is this a current diagnosis for this admission?: Yes (4) Hepatic encephalopathy syndrome Is this a current diagnosis for this admission?: Yes (5) Emaciation Is this a current diagnosis for this admission?: Yes (6) Cirrhosis of liver Qualifiers: Hepatic cirrhosis type: alcoholic cirrhosis Ascites presence: with ascites Qualified Code(s): K70.31 - Alcoholic cirrhosis of liver with ascites Is this a current diagnosis for this admission?: Yes (7) ETOH abuse Is this a current diagnosis for this admission?: Yes (8) Varices of esophagus determined by endoscopy Is this a current diagnosis for this admission?: Yes (9) 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 Is this a current diagnosis for this admission?: Yes (10) Coagulopathy Is this a current diagnosis for this admission?: Yes (11) 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 Is this a current diagnosis for this admission?: Yes - Time Time Spent with patient: 35 or more minutes Total Critical Time (Minutes): 35 - [id number] Level of Care: ICU Medications reviewed and adjusted accordingly: Yes Anticipated discharge: Hospice Within: Other - Today - Inpatient Certification Based on my medical assessment, after consideration of the patient's comorbidities, presenting symptoms, or acuity I expect that the services needed warrant INPATIENT care.: Yes I certify that my determination is in accordance with my understanding of Medicare's requirements for reasonable and necessary INPATIENT services [42 CFR 412.3e].: Yes Medical Necessity: Significant Comorbidiites Make Outpatient Treatment Too Risky, Need for Pain Control, Risk of Diagnosis Which Will Require Inpatient Eval/Care/Monitoring 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 Though saddened he appears accepting of the terminal prognosis of his illness. I had an opportunity to speak to the surgical team who had initially evaluated him. They have shared with us that they have biopsy information consistent with hepatocellular malignancy. It is consistent with his overall examination and significant weight loss and decline in health. He has been accepted to hospice care and both the family and he are accepting of this process. He will be transferred there for transition of care. The care of the patient is a dynamic an ongoing process throughout the ICU. Events of the day are captured in a one-time note format in an attempt to describe the last 24 hours. Orders done or given are not always reflected by the timing of the placement in the chart. This patient requires in patient hospice secondary to: Acute blood loss anemia, cirrhosis with decompensation and hepatic encephalopathy. Medical power of corporate attorney is his and son. They were updated at bedside 06.21.19: Has significant encephalopathy not explained by hyperammonia anemia. Suspicious that he may have an underlying degree of Wernicke's Korsakoff and have started thiamine therapy. Patient has significant initiated appearance and has a significant amount of weight loss in the last 6 months. His activities of daily living have been affected by his continued insidious decline in health. I am suspicious that there is an underlying metastatic process which is the etiology of his decline coupled synergistically to his long-standing alcohol use. He also has significant atherosclerotic disease and a component of vascular insufficiency of the gut may also be playing a part. We had a lengthy discussion with the family who has made a request that no aggressive measures be further carried out. When given the option for routine medication such as Protonix and octreotide they elected to just only provide comfort supportive care. We believe that this request is reasonable. We did send blood work to evaluate for pancreatic and liver malignancy. We have consulted hospice/palliative care as well. Discontinue all nonessential items. Have assured the family that the patient's wishes regarding no aggressive care, DNR and comfort care will be provided protecting the integrity of his wishes.
--- NOTE | 2019-06-22 16:02 | PDOC TRANSFER SUMMARY ---
Impression - Admit/DC Date/PCP Admission Date/Primary Care Provider: 06/19/19 17:30 BILLIE DURAN MD Discharge Date: 06/22/19 - Discharge Diagnosis (1) Acute on chronic blood loss anemia Is this a current diagnosis for this admission?: Yes (2) Hepatocellular carcinoma Is this a current diagnosis for this admission?: Yes (3) Metabolic encephalopathy Is this a current diagnosis for this admission?: Yes (4) Hepatic encephalopathy syndrome Is this a current diagnosis for this admission?: Yes (5) Emaciation Is this a current diagnosis for this admission?: Yes (6) Cirrhosis of liver Is this a current diagnosis for this admission?: Yes (7) ETOH abuse Is this a current diagnosis for this admission?: Yes (8) Varices of esophagus determined by endoscopy Is this a current diagnosis for this admission?: Yes (9) 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 Is this a current diagnosis for this admission?: Yes (10) Coagulopathy Is this a current diagnosis for this admission?: Yes (11) 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 Is this a current diagnosis for this admission?: Yes - Additional Information Resuscitation Status: Comfort Measures Only Discharge Diet: As Tolerated, Regular Discharge Activity: Activity As Tolerated Referrals: BILLIE DURAN MD [Primary Care Provider] - Follow up as needed Home Medications: Albuterol Sulfate [Albuterol Sulfate Hfa] 1 puff IH Q4HP PRN 06/20/19 Bisacodyl [Dulcolax 5 mg Tablet] 5 mg PO HSP PRN 06/20/19 Fluticasone/Salmeterol [Advair 250-50 Diskus 14 Dose/Diskus] 2 puff IH Q12 06/20/19 Montelukast Sodium [Singulair 10 mg Tablet] 10 mg PO DAILY 06/20/19 Multivitamin [Tab-A-Priscila (Multiple Vitamin) Tablet] 1 tab PO PCBRKFST 06/20/19 Pantoprazole Sodium [Protonix [address] Tablet] 40 mg PO BIDPCBS 06/20/19 Thiamine HCl [Thiamine 100 mg Tablet] 100 mg PO DAILY 06/20/19 Trazodone HCl [Desyrel 50 mg Tablet] 50 mg PO HSP PRN 06/20/19 History of Present Illiness History of Present Illness: ADDISON Mcleod [place] is a 74 year old male who was admitted for upper and lower GI bleed. He has advanced cirrhosis and throughout the course of his stay he was found to have evidence to support hepatocellular carcinoma. He underwent EGD which revealed varices which were not actively bleeding and evidence of previous banding. He had a colonoscopy which is was unrevealing for any bleeding. He had mild functional coagulopathy secondary to splenic sequestration of platelets and advanced liver failure. Hospital Course Hospital Course: He was extremely emaciated and has had a significant weight loss related to the malignancy. Discussion with surgery revealed that previous biopsies done at an outpatient facility were consistent with adenocarcinoma of the liver with marker suspicious and consistent with hepatocellular carcinoma. Noted in HPI he did undergo evaluation of the upper and lower GI tract with no active bleeding. His bleeding improved. His encephalopathy waxed and waned. He was cognizant enough to discuss comfort care and hospice care and he was in agreement. His family advocated for this as well. Physical Exam Vital Signs: Temp Pulse Resp BP Pulse Ox 95.7 F L 86 20 98/76 L 92 06/22/19 08:00 06/22/19 07:30 06/22/19 08:00 06/22/19 07:30 06/22/19 07:30 Intake & Output 06/21/19 06/22/19 06/23/19 06:59 06:59 06:59 Intake Total 6158 Output Total 668 250 Balance 5490 -250 Weight 69.6 kg 69.9 kg 69.6 kg Exam: Please see progress note from day of discharge 06/22/2019 Results Laboratory Results: WBC 5.7 10^3/uL (4.0-10.5) 06/20/19 22:34 RBC 3.33 10^6/uL (4.35-5.55) L 06/20/19 22:34 Hgb 10.5 g/dL (13.5-17.0) L D 06/20/19 22:34 Hct 30.5 % (37.9-51.0) L 06/20/19 22:34 MCV 92 fl (80-97) 06/20/19 22:34 MCH 31.4 pg (27.0-33.4) 06/20/19 22:34 MCHC 34.3 g/dL (32.0-36.0) 06/20/19 22:34 RDW 15.4 % (11.5-14.0) H 06/20/19 22:34 Plt Count 126 10^3/uL (150-450) L 06/20/19 22:34 Lymph % (Auto) 5.2 % (13-45) L 06/20/19 22:34 Boundary % (Auto) 5.6 % (3-13) 06/20/19 22:34 Eos % (Auto) 0.1 % (0-6) 06/20/19 22:34 Baso % (Auto) 0.5 % (0-2) 06/20/19 22:34 Absolute Neuts (auto) 5.1 10^3/uL (1.7-8.2) 06/20/19 22:34 Absolute Lymphs (auto) 0.3 10^3/uL (0.5-4.7) L 06/20/19 22:34 Absolute Monos (auto) 0.3 10^3/uL (0.1-1.4) 06/20/19 22:34 Absolute Eos (auto) 0.0 10^3/uL (0.0-0.6) 06/20/19 22:34 Absolute Basos (auto) 0.0 10^3/uL (0.0-0.2) 06/20/19 22:34 Total Counted 100 06/20/19 12:25 Seg Neutrophils % 88.6 % (42-78) H 06/20/19 22:34 Seg Neuts % (Manual) 87 % (42-78) H 06/20/19 12:25 Band Neutrophils % 2 % (3-5) L 06/20/19 05:42 Lymphocytes % (Manual) 6 % (13-45) L 06/20/19 12:25 Monocytes % (Manual) 6 % (3-13) 06/20/19 12:25 Eosinophils % (Manual) 1 % (0-6) 06/20/19 12:25 Basophils % (Manual) 0 % (0-2) 06/20/19 12:25 Abs Neuts (Manual) 4.5 10^3/uL (1.7-8.2) 06/20/19 12:25 Abs Lymphs (Manual) 0.3 10^3/uL (0.5-4.7) L 06/20/19 12:25 Abs Monocytes (Manual) 0.3 10^3/uL (0.1-1.4) 06/20/19 12:25 Absolute Eos (Manual) 0.1 10^3/uL (0.0-0.6) 06/20/19 12:25 Abs Basophils (Manual) 0.0 10^3/uL (0.0-0.2) 06/20/19 12:25 Platelet Comment DECREASED 06/20/19 12:25 Polychromasia SLIGHT 06/20/19 12:25 Anisocytosis 1+ 06/20/19 12:25 PT 19.1 SEC (11.4-15.4) H 06/20/19 12:25 INR 1.59 06/20/19 12:25 INR (Anticoag Therapy) Cancelled 06/19/19 13:37 APTT 37.6 SEC (23.5-35.8) H 06/20/19 12:25 VBG pH 7.37 (7.30-7.42) 06/19/19 13:37 VBG pCO2 35.3 mmHg (35-63) 06/19/19 13:37 VBG HCO3 19.9 mmol/L (20-32) L 06/19/19 13:37 VBG Base Excess -4.8 mmol/L 06/19/19 13:37 Sodium 141.3 mmol/L (137-145) 06/20/19 12:25 Potassium 3.8 mmol/L (3.6-5.0) 06/20/19 12:25 Chloride 114 mmol/L (98-107) H 06/20/19 12:25 Carbon Dioxide 15 mmol/L (22-30) L 06/20/19 12:25 Anion Gap 12 (5-19) 06/20/19 12:25 BUN 68 mg/dL (7-20) H 06/20/19 12:25 Creatinine 2.83 mg/dL (0.52-1.25) H 06/20/19 12:25 Est GFR ( Amer) 27 (>60) L 06/20/19 12:25 Est GFR (MDRD) Non-Af 22 (>60) L 06/20/19 12:25 Glucose 68 mg/dL (75-110) L 06/20/19 12:25 POC Glucose 84 mg/dL (70-110) 06/20/19 14:09 Lactic Acid 2.0 mmol/L (0.7-2.1) 06/19/19 17:05 Lactic Acid Cancelled 06/19/19 17:05 Calcium 8.2 mg/dL (8.4-10.2) L 06/20/19 12:25 Magnesium 1.8 mg/dL (1.6-2.3) 06/20/19 12:25 Total Bilirubin 1.5 mg/dL (0.2-1.3) H 06/20/19 12:25 Direct Bilirubin 0.9 mg/dL (0.0-0.4) H 06/20/19 12:25 Neonat Total Bilirubin Not Reportable 06/20/19 12:25 Neonat Direct Bilirubin Not Reportable 06/20/19 12:25 Neonat Indirect Bili Not Reportable 06/20/19 12:25 AST 45 U/L (17-59) 06/20/19 12:25 ALT 22 U/L (<50) 06/20/19 12:25 Alkaline Phosphatase 52 U/L (38-126) 06/20/19 12:25 Ammonia 9.4 umol/L (9-33) 06/19/19 13:37 Troponin I 0.086 ng/mL 06/19/19 13:37 NT-Pro-B Natriuret Pep 6470 pg/mL (<125) H 06/19/19 13:37 Total Protein 5.1 g/dL (6.3-8.2) L 06/20/19 12:25 Albumin 2.5 g/dL (3.5-5.0) L 06/20/19 12:25 Tumor Marker AFP 1.8 ng/mL (0.0-8.3) 06/21/19 09:23 CA 19-9 Antigen 20 U/mL (0-35) 06/21/19 09:23 Random Cortisol 52.40 ug/dL (None Established) 06/19/19 18:35 Urine Color DEJUAN 06/19/19 14:56 Urine Appearance SLIGHTLY-CLOUDY 06/19/19 14:56 Urine pH 5.0 (5.0-9.0) 06/19/19 14:56 Ur Specific [place] 1.020 06/19/19 14:56 Urine Protein 30 mg/dL (NEGATIVE) H 06/19/19 14:56 Urine Glucose (UA) NEGATIVE mg/dL (NEGATIVE) 06/19/19 14:56 Urine Ketones NEGATIVE mg/dL (NEGATIVE) 06/19/19 14:56 Urine Blood SMALL (NEGATIVE) H 06/19/19 14:56 Urine Nitrite (Reflex) NEGATIVE (NEGATIVE) 06/19/19 14:56 Urine Bilirubin NEGATIVE (NEGATIVE) 06/19/19 14:56 Urine Urobilinogen NEGATIVE mg/dL (<2.0) 06/19/19 14:56 Leukocyte Esterase Rfl MODERATE (NEGATIVE) H 06/19/19 14:56 Urine RBC (Auto) 15 /HPF 06/19/19 14:56 U Hyaline Cast (Auto) 82 /LPF 06/19/19 14:56 Urine Bacteria (Auto) TRACE /HPF 06/19/19 14:56 Urine WBC (Reflex) 18 /HPF 06/19/19 14:56 Squamous Epi Cells Auto 2 /HPF 06/19/19 14:56 Urine Mucus (Auto) OCC /LPF 06/19/19 14:56 Urine Ascorbic Acid NEGATIVE (NEGATIVE) 06/19/19 14:56 Blood Type O POSITIVE 06/19/19 18:35 Blood Type Confirm O POSITIVE 06/19/19 18:35 Antibody Screen NEGATIVE 06/19/19 18:35 Crossmatch See Detail 06/19/19 18:35 06/19/19 06/19/19 13:37 13:37 Troponin I 0.086 NT-Pro-B Natriuret Pep 6470 H Impressions: Chest X-Ray 06/19/19 00:00 IMPRESSION: Interval placement of left IJ approach central venous catheter with its tip located at the confluence of the left brachiocephalic vein with the SVC. Enteric drainage tube tip is below the field of view. It is at least within the stomach. copyright 2010 [employer]- All Rights Reserved Chest X-Ray 06/19/19 13:36 IMPRESSION: NO ACUTE RADIOGRAPHIC FINDING IN THE CHEST. Head CT 06/19/19 15:12 IMPRESSION: NORMAL BRAIN CT WITHOUT CONTRAST. EVIDENCE OF ACUTE STROKE: NO. Abdomen/Pelvis CT 06/19/19 15:25 IMPRESSION: 1. Findings consistent with cirrhosis of the liver with evidence of small nodular liver. Massive ascites. 2. Hyperdense gallbladder. The possibility of cholelithiasis cannot be excluded. Hyperdensity could be secondary to excretion of contrast if prior contrast administration performed. 3. 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 The aneurysm measures 5.4 x 5 x 5.7 cm. 4. Thickening of the gastric mucosa which could be seen with inflammatory change. Clinical correlation needed. Hiatal hernia. 5. Chronic interstitial changes in right lower lobe. Old granulomatous disease. Plan Plan of Treatment: Goals of care including transition to comfort care and hospice at [facility]. As life expectancy is less than 1 to 2 weeks. Goals are pain control anxiety control and control of respiratory distress with anxiolytics and morphine. Time Spent: Greater than 30 Minutes - 38 min Stroke Is this a Stroke Patient?: No Stroke Pt being discharged on Anti-thrombolytic therapy?: No Reason(s) for not prescribing Anti-thrombolytic therapy:: Tx not tolerated Stroke Pt being discharged on Anti-coagulation therapy?: No Reason(s) for not prescribing Anti-coagulation therapy:: Tx not tolerated Stroke Pt being discharged on Statins?: No Reason(s) for not prescribing Statins therapy:: Tx not tolerated Acute Heart Failure - Is this a Heart Failure Patient?: No
[2019-06-23] MEDS ORDERED: THIAMINE HCL IV SCH (10:00)
[2019-06-23] MEDS ORDERED: FOLIC ACID IV SCH (10:00)
[2019-06-23] MEDS ORDERED: NORMAL SALINE IV SCH (10:00)
[2019-06-23] MEDS ORDERED: THIAMINE HCL 250 MG in NORMAL SALINE 50 ML IV SCH (22:00)
== END 2019-06-22 17:25 | disposition hospice, inpatient (51) | DRG 435 ==
LOC: ER 13:28 → EH 17:30 → ICU 18:05
PROVIDERS: ADMIT Anesthesiology; ATTEND Anesthesiology
PROC: 0DJ08ZZ Inspection of Upper Intestinal Tract, Via Natural or Artificial Opening Endoscopic (ICD-10-PCS; 2019-06-19)
PROC: 30233L1 Transfusion of Nonautologous Fresh Plasma into Peripheral Vein, Percutaneous Approach (ICD-10-PCS; 2019-06-19)
PROC: 30233R1 Transfusion of Nonautologous Platelets into Peripheral Vein, Percutaneous Approach (ICD-10-PCS; 2019-06-19)
PROC: 30233N1 Transfusion of Nonautologous Red Blood Cells into Peripheral Vein, Percutaneous Approach (ICD-10-PCS; 2019-06-19)
PROC: 02HV33Z Insertion of Infusion Device into Superior Vena Cava, Percutaneous Approach (ICD-10-PCS; 2019-06-19)
PROC: 30233L1 Transfusion of Nonautologous Fresh Plasma into Peripheral Vein, Percutaneous Approach (ICD-10-PCS; 2019-06-20)
PROC: 30233R1 Transfusion of Nonautologous Platelets into Peripheral Vein, Percutaneous Approach (ICD-10-PCS; 2019-06-20)
PROC: 30233N1 Transfusion of Nonautologous Red Blood Cells into Peripheral Vein, Percutaneous Approach (ICD-10-PCS; 2019-06-20)
PROC: 0DJD8ZZ Inspection of Lower Intestinal Tract, Via Natural or Artificial Opening Endoscopic (ICD-10-PCS; principal; 2019-06-22)
DX: C22.0 Liver cell carcinoma (principal); G93.41 Metabolic encephalopathy; N17.9 Acute kidney failure, unspecified; R64 Cachexia; K76.6 Portal hypertension; D68.9 Coagulation defect, unspecified; D62 Acute posthemorrhagic anemia; I85.00 Esophageal varices without bleeding; Z51.5 Encounter for palliative care; K72.90 Hepatic failure, unspecified without coma; K70.31 Alcoholic cirrhosis of liver with ascites; D69.6 Thrombocytopenia, unspecified; E86.0 Dehydration; I10 Essential (primary) hypertension; J44.9 Chronic obstructive pulmonary disease, unspecified; R41.0 Disorientation, unspecified; I86.4 Gastric varices; K31.89 Other diseases of stomach and duodenum; K29.80 Duodenitis without bleeding; R00.1 Bradycardia, unspecified; F10.10 Alcohol abuse, uncomplicated; Z79.82 Long term (current) use of aspirin
CPT/HCPCS: 36415; 36430; 43235; 45378; 51702; 70450; 71045; 74176; 80048; 80053; 81001; 82105; 82140; 82533; 82803; 82962; 83605; 83735; 83880; 84484; 85025; 85610; 85730; 86301; 86850; 86900; 86901; 86920; 87040; 87070; 87086; 93005; 93010; 96365; 99291; C1751; C9113; J0171; J0696; J1200; J1610; J2250; J2310; J2354; J2405; J3010; J3411; J3430; J3490; J7030; J7040; J7050; J7060; P9016; P9017; P9035; P9047; S0119